=== PATIENT | male | born 1985 | race Caucasian/White ===

== ENCOUNTER → 2020-06-17 10:40 | Outpatient (CLI) | payer OTHER, SELFPAY ==
[2020-06-17 12:22] LABS: Cholesterol 176 mg/dL (140-199); HDL Cholesterol 35 mg/dL (40-60); LDL Cholesterol Calculated 95 mg/dL (<100); Triglycerides 230 mg/dL (35-150)
== END ==
PROVIDERS: PCP Internal Medicine; Referring Provider Internal Medicine; Visit Provider Internal Medicine
DX: H93.12 Tinnitus, left ear (principal); R42 Dizziness and giddiness
CPT/HCPCS: 36415; 80061

== ENCOUNTER → 2023-06-17 07:53 | Outpatient (CLI) | payer OTHER, SELFPAY ==
[2023-06-17 08:42] LABS: COVID-19 CEPHEID 4-PLEX PCR Negative (Negative); Influenza A - CEPHEID Flu A NEGATIVE (NEGATIVE); Influenza B - CEPHEID Flu B NEGATIVE (NEGATIVE); Respiratory Syncytial Virus Negative (Negative)
== END ==
PROVIDERS: PCP Internal Medicine; Visit Provider Nurse Practitioner Family
DX: R06.02 Shortness of breath (principal)
CPT/HCPCS: 0241U

== ENCOUNTER → 2023-06-17 08:01 | Outpatient (CLI) | payer OTHER, SELFPAY ==
[2023-06-17 08:37] LABS: Add Manual Diff / Slide Review NO; Basophils Absolute Auto 100 /uL (0-100); Basophils Percent Auto 0.8 % (0-2); Eosinophils Absolute Auto 400 /uL (0-450); Hematocrit 47.3 % (41-53); Hemoglobin 17.1 g/dL (13.5-17.5); Lymphocytes Absolute Auto 3100 /uL (1100-4500); Lymphocytes Percent Auto 45.9 % (25-40); Mean Corpuscular HGB Conc 36.2 % (30-36); Mean Corpuscular Hemoglobin 31.6 PG (26-34); Mean Corpuscular Volume 87.5 fL (80-100); Monocytes Absolute Auto 400 /uL (0-900); Monocytes Percent Auto 5.5 % (3-14); Neutrophils Absolute Auto 2800 /uL (1500-7000); Neutrophils Percent Auto 41.8 % (50-75); Platelet Count 278 X10^3/uL (150-400); Red Blood Cell Count 5.41 X10^6/uL (4.5-5.9); Red Cell Distribution Width 12.2 % (11.6-14.8); White Blood Cell Count 6.7 X10^3/uL (4.5-11.0)
[2023-06-17 08:53] LABS: Alanine Aminotransferase 32 IU/L (<50); Albumin 4.9 g/dL (3.5-5.0); Albumin Globulin Ratio 1.8 (1.0-2.8); Alkaline Phosphatase 59 U/L (38-126); Aspartate Aminotransferase 49 IU/L (17-59); BUN Creatinine Ratio 14.2 (6-22); Bilirubin Total 1.3 mg/dL (0.2-1.3); Blood Urea Nitrogen 28 mg/dL (9-20); Calcium 9.4 mg/dL (8.4-10.2); Carbon Dioxide 18 mmol/L (22-32); Chloride 86 mmol/L (98-107); Estimated Glomerular Filt Rate 44 mL/min (>60); Globulin 2.8 g/dL (1.7-4.1); Glucose 100 mg/dL (70-100); HEMOLYSIS 20 (0-50); Total Protein 7.7 g/dL (6.3-8.2)
[2023-06-17 09:00] LABS: Potassium 6.4 mmol/L (3.4-5.1); Sodium 117 mmol/L (137-145)
== END ==
PROVIDERS: PCP Internal Medicine; Referring Provider Nurse Practitioner Family; Visit Provider Nurse Practitioner Family
DX: R06.02 Shortness of breath (principal)
CPT/HCPCS: 36415; 80053; 85025

== ENCOUNTER 2023-06-17 09:46 | Inpatient (IN) | payer OTHER, SELFPAY ==
[2023-06-17] VITALS (44 sets, daily range): BP systolic 86–133; BP diastolic 49–84; PULSE 66–84; RESP 13–46; TEMP 36.1–36.7; O2SAT 94–100; BMI 25.9
[2023-06-17] MEDS: SODIUM CHLORIDE 0.9% 1,000 ML 1000 ML IV (10:10)
[2023-06-17 10:30] LABS: Appearance Urine UA CLEAR; Bilirubin Urine UA NEGATIVE (NEGATIVE); Color Urine UA YELLOW; Glucose Urine UA NEGATIVE (Negative); Ketones Urine UA NEGATIVE (NEGATIVE); Leukocyte Esterase Urine UA NEGATIVE (NEGATIVE); Nitrite Urine UA NEGATIVE (Negative); Occult Blood Urine UA NEGATIVE (Negative); Protein Urine UA NEGATIVE (Negative); Specific Gravity Urine UA >=1.030 (1.000-1.035); Urobilinogen Urine UA 0.2 E.U./dL (0.2); pH Urine UA 5.5 (4.5-8.0)
--- NOTE | 2023-06-17 10:31 | DI.RAD.S_ITS ---
PROCEDURE: XR CHEST 1V INDICATIONS: short of breath TECHNIQUE: One view of the chest was acquired. COMPARISON: None. FINDINGS: Surgical changes and devices: None. Lungs and pleura: Lungs are clear. No pleural effusions or pneumothorax. Mediastinum: Mediastinal contours appear normal. Heart size is normal. Bones and chest wall: No suspicious bony lesions. Overlying soft tissues appear unremarkable. IMPRESSION: No evidence acute pulmonary process. Dictated by: Joe Crowe M.D. on 06/17/2023 at 11:34 Approved by: Joe Crowe M.D. on 06/17/2023 at 11:35
[2023-06-17 10:33] LABS: UR Morphine/Opiate cutoff 300 Negative (Negative); Ur Creatinine Normal (Normal); Ur Specific Gravity Normal (Normal); Urine Amphetamines Negative (Negative); Urine Barbiturates Negative (Negative); Urine Benzodiazepines Negative (Negative); Urine Cocaine Negative (Negative); Urine MDMA Negative (Negative); Urine Methadone Negative (Negative); Urine Methamphetamines Negative (Negative); Urine Oxycodone Negative (Negative); Urine Phencyclidine Negative (Negative); Urine Tetrahydrocannabinol Positive (Negative); Urine Tricyclic Antidepressant Negative (Negative); Urine pH Normal (Normal)
[2023-06-17 10:34] LABS: Bacteria Urine None Seen; Mucus Urine 1+ (Negative); RBC Urine None Seen (0-5/HPF); Squamous Epithelial Cell Urine None Seen (0-5/HPF); WBC Urine None Seen (0-5/HPF)
--- NOTE | 2023-06-17 10:34 | ED.RECABL ---
HPI - Recheck/Abnormal Lab/Rx General Chief Complaint: Recheck/Abnormal Lab/Rx Stated Complaint: tired, abnormal lab, sent by [facility] Time Seen by Provider: 06/17/23 10:12 Source: patient Mode of arrival: Ambulatory History of Present Illness HPI narrative: Patient is a 37-year-old male with no past medical history presenting from the walk-in clinic with abdomen blood work. He was found to be hyponatremic hyperkalemic with VERONICA. He reports that over the last 1 week he is had increasing shortness of breath with very minimal exertion. He feels like he is got some sore muscles. No fever chills. He reports that he is drinking water but not excessive water. He denies any drug use no alcohol use. He reports that walking in to the ER from the parking spot he thought about sitting down and resting. He denies any chest pain no fever or cough. No abdominal pain. He still urinating. He denies taking any medications. Admits to vaping marijuana. Related Data Home Medications Medication Instructions Recorded Confirmed No Known Home Medications 06/17/23 06/17/23 Allergies Allergy/AdvReac Type Severity Reaction Status Date / Time No Known Drug Allergies Allergy Unverified 06/17/23 07:25 Review of Systems Review of Systems ROS Unobtainable: All systems reviewed & are unremarkable except as noted in HPI and below Patient History Social History household members: spouse Smoking Status: Current every day smoker alcohol intake: current Smoking Status: Current every day smoker tobacco type: vaping alcohol intake frequency: 0-2 drinks per day Substance Use Type: marijuana Exam Initial Vital Signs Initial Vital Signs: Vital Signs Pulse Rate 80 06/17/23 10:03 Respiratory Rate 19 06/17/23 10:03 Pulse Oximetry 100 06/17/23 10:03 GENERAL: Alert 37-year-old male HEENT: Head atraumatic,EOMI, pupils reactive, face symmetric, moist mucous membranes CARDIOVASCULAR: Regular rate and rhythm without murmurs, rubs or gallops. RESPIRATORY: Breath sounds equal bilaterally, no wheezes rales or rhonchi. ABDOMEN: Soft, nontender. Normoactive bowel sounds all 4 quadrants. No guarding or rebound. EXTREMITIES: Normal range of motion, no clubbing or edema. Neurovascularly intact NEUROLOGICAL: Alert and oriented x4. SKIN: Warm, dry, no laceration, no petechiae, no rashes or lesions. Course Orders Ordered: ED Orders 06/17/23 10:20 Creatinine Urine Random Stat Sodium Urine Random Stat Urinalysis and Microscopic Stat Urine Drug Screen, Rapid Stat 06/17/23 10:31 Chest [XR chest 1V] Stat Lactate (Lactic Acid) Stat 06/17/23 10:35 BNP [NT-proBNP (BNP-Adult 18+)] Stat Complete Blood Count AUTO DIFF Stat Comprehensive Metabolic Panel Stat D Dimer Stat Free T4, Direct Thyroxine Stat Lipase Stat Prothrombin Time INR Stat TSH [Thyroid Stimulating Hormone] Stat Troponin & CK Cardiac Panel Stat 06/17/23 11:30 US renal complete Stat 06/17/23 12:01 CT chest abd pel w con Stat 06/17/23 15:08 BMP [Basic Metabolic Panel] Stat 06/17/23 20:30 Basic Metabolic Panel Q4H 06/17/23 23:00 Basic Metabolic Panel Q4H 06/18/23 03:00 Basic Metabolic Panel Q4H 06/18/23 07:00 Basic Metabolic Panel Q4H Acetaminophen (Acetaminophen 325 Mg Tablet) 650 mg PO Q6H PRN PRN Reason: Fever/Mild Pain (1-3) Dextrose (Dextrose 50 % In Water 25 Gm/50 Ml Syringe) 25 gm IV PRN PRN PRN Reason: Hypoglycemia Last Admin: 06/17/23 17:40 Dose: 25 gm Documented By: GENEVIEVE Heparin Sodium (Porcine) (Heparin 5,000 Unit/Ml Vial) 5,000 unit SUBCUT BID [facility] Sodium Chloride (Hypertonic Saline 3%) 100 mls @ 30 mls/hr IV NOW ONE Stop: 06/17/23 19:29 Last Admin: 06/17/23 17:15 Dose: 30 mls/hr Documented By: GENEVIEVE Levothyroxine Sodium (Levothyroxine 25 Mcg Tablet) 25 mcg PO DAILY@0600 AC Naloxone HCl (Naloxone 0.4 Mg/Ml Vial) 0.2 mg IV Q2MIN PRN PRN Reason: Opiate Reversal Nicotine (Nicotine 7 Mg Patch) 7 mg TOP DAILY AC Ondansetron HCl (Ondansetron 4 Mg/2 Ml Inj) 4 mg IV Q8HR PRN PRN Reason: Nausea And Vomiting Discontinued Medications Dextrose (Dextrose 50 % In Water 25 Gm/50 Ml Syringe) 25 gm IV NOW ONE Stop: 06/17/23 16:06 Last Admin: 06/17/23 16:22 Dose: 25 gm Documented By: HCW Sodium Chloride (Normal Saline 0.9%) 1,000 mls @ 1,000 mls/hr IV BOLUS ONE Stop: 06/17/23 11:05 Last Infusion: 06/17/23 10:21 Dose: 0 mls/hr Documented By: Infusion: 06/17/23 10:12 Dose: 0 mls/hr Documented By: Admin: 06/17/23 10:10 Dose: 1,000 mls/hr Documented By: TOPHER Calcium Gluconate 4.65 meq/ (Sodium Chloride) 60 mls @ 180 mls/hr IV NOW ONE Stop: 06/17/23 16:24 Last Admin: 06/17/23 16:32 Dose: 180 mls/hr Documented By: YUNIEL Insulin Human Regular (Insulin Regular 100 Unit/Ml 3 Ml Vial) 10 unit IV NOW ONE Stop: 06/17/23 16:06 Last Admin: 06/17/23 16:21 Dose: 10 unit Documented By: HCW Co-signed By: RICCARDO Vital Signs Vital signs: Vital Signs - 8 hr 06/17/23 11:30 06/17/23 12:00 06/17/23 12:10 Pulse Rate 75 75 80 Respiratory Rate 22 14 22 Blood Pressure Pulse Oximetry 99 100 99 Oxygen Delivery Method Room Air 06/17/23 12:10 06/17/23 12:30 06/17/23 12:45 Pulse Rate 71 80 Respiratory Rate 13 Blood Pressure 108/73 Pulse Oximetry 100 99 Oxygen Delivery Method Room Air Room Air 06/17/23 12:45 06/17/23 13:06 06/17/23 13:06 Pulse Rate 74 Respiratory Rate 17 Blood Pressure 133/55 L 125/77 Pulse Oximetry 94 Oxygen Delivery Method Room Air 06/17/23 13:30 06/17/23 13:31 06/17/23 13:31 Pulse Rate 74 74 Respiratory Rate 25 H 26 H Blood Pressure 97/56 L Pulse Oximetry 100 100 Oxygen Delivery Method Room Air 06/17/23 14:00 06/17/23 14:03 06/17/23 14:03 Pulse Rate 74 73 Respiratory Rate 16 25 H Blood Pressure 93/61 Pulse Oximetry 98 100 Oxygen Delivery Method Room Air 06/17/23 14:04 06/17/23 14:04 06/17/23 14:30 Pulse Rate 74 Respiratory Rate 23 Blood Pressure 98/62 88/58 L Pulse Oximetry 99 Oxygen Delivery Method 06/17/23 14:30 06/17/23 14:45 06/17/23 14:45 Pulse Rate 73 76 Respiratory Rate 23 20 Blood Pressure 88/58 L Pulse Oximetry 100 99 Oxygen Delivery Method MDM - Recheck/Abnormal Lab/Rx Lab Data 06/17/23 10:35 06/17/23 15:08 Labs: Lab Results 06/17/23 06/17/23 06/17/23 Range/Units 10:20 10:20 10:20 WBC (4.5-11.0) X10^3/uL RBC (4.5-5.9) X10^6/uL Hgb (13.5-17.5) g/dL Hct (41-53) % MCV (80-100) fL MCH (26-34) PG MCHC (30-36) % RDW (11.6-14.8) % Plt Count (150-400) X10^3/uL Neut % (Auto) (50-75) % Lymph % (Auto) (25-40) % Waller % (Auto) (3-14) % Eos % (Auto) (2-4) % Baso % (Auto) (0-2) % Neut # (Auto) (3107-7823) /uL Lymph # (Auto) (5129-6157) /uL Waller # (Auto) (0-900) /uL Eos # (Auto) (0-450) /uL Baso # (Auto) (0-100) /uL PT (10.1-12.7) SECONDS INR (0.9-1.3) D-Dimer (<500) ng/ml Sodium (137-145) mmol/L Potassium (3.4-5.1) mmol/L Chloride (98-107) mmol/L Carbon Dioxide (22-32) mmol/L BUN (9-20) mg/dL Creatinine (0.66-1.25) mg/dL Estimated GFR (>60) mL/min BUN/Creatinine Ratio (6-22) Glucose (70-100) mg/dL Lactate (0.7-2.1) mmol/L Calcium (8.4-10.2) mg/dL Total Bilirubin (0.2-1.3) mg/dL AST (17-59) IU/L ALT (<50) IU/L Alkaline Phosphatase (38-126) U/L Total Creatine Kinase (55-170) U/L Troponin I (0.01-0.034) ng/mL NT-Pro-B Natriuret Pep (<125) pg/mL Total Protein (6.3-8.2) g/dL Albumin (3.5-5.0) g/dL Globulin (1.7-4.1) g/dL Albumin/Globulin Ratio (1.0-2.8) Lipase (23-300) U/L TSH (0.47-4.68) uIU/mL Free T4 (0.78-2.19) ng/dL Urine Color Yellow Urine Appearance Clear Urine pH 5.5 (4.5-8.0) Ur Specific Bryan >=1.030 H (1.000-1.035) Urine Protein Negative (Negative) Urine Glucose (UA) Negative (Negative) g/dL Urine Ketones Negative (NEGATIVE) Urine Occult Blood Negative (Negative) Urine Nitrate Negative (Negative) Urine Bilirubin Negative (NEGATIVE) Urine Urobilinogen 0.2 (0.2) E.U./dL Ur Leukocyte Esterase Negative (NEGATIVE) Urine RBC None seen (0-5/HPF) Urine WBC None seen (0-5/HPF) Ur Squamous Epith Cells None seen (0-5/HPF) Urine Bacteria None seen (None) Urine Mucus 1+ H (Negative) Ur Culture Indicated? Cult not indicated Ur Random Sodium 121 H (30-90) mmol/L Urine Creatinine 286.0 mg/dL U Opiates 300ng/mL cut Negative (Negative) Ur Oxycodone Screen Negative (Negative) Urine Methadone Screen Negative (Negative) Ur Barbiturates Screen Negative (Negative) U Tricyclic Antidepress Negative (Negative) Ur Phencyclidine Scrn Negative (Negative) Ur Amphetamines Screen Negative (Negative) U Methamphetamines Scrn Negative (Negative) Ur MDMA Scrn (Ecstasy) Negative (Negative) U Benzodiazepines Scrn Negative (Negative) Urine Cocaine Screen Negative (Negative) U Marijuana (THC) Screen Positive H (Negative) 06/17/23 06/17/23 06/17/23 Range/Units 10:31 10:35 10:35 WBC 6.1 (4.5-11.0) X10^3/uL RBC 5.17 (4.5-5.9) X10^6/uL Hgb 16.2 (13.5-17.5) g/dL Hct 45.3 (41-53) % MCV 87.7 (80-100) fL MCH 31.3 (26-34) PG MCHC 35.7 (30-36) % RDW 12.0 (11.6-14.8) % Plt Count 241 (150-400) X10^3/uL Neut % (Auto) 42.7 L (50-75) % Lymph % (Auto) 44.8 H (25-40) % Waller % (Auto) 6.0 (3-14) % Eos % (Auto) 5.8 H (2-4) % Baso % (Auto) 0.7 (0-2) % Neut # (Auto) 2600 (1327-6231) /uL Lymph # (Auto) 2700 (8845-1642) /uL Waller # (Auto) 400 (0-900) /uL Eos # (Auto) 400 (0-450) /uL Baso # (Auto) 0 (0-100) /uL PT 13.8 H (10.1-12.7) SECONDS INR 1.2 (0.9-1.3) D-Dimer (<500) ng/ml Sodium (137-145) mmol/L Potassium (3.4-5.1) mmol/L Chloride (98-107) mmol/L Carbon Dioxide (22-32) mmol/L BUN (9-20) mg/dL Creatinine (0.66-1.25) mg/dL Estimated GFR (>60) mL/min BUN/Creatinine Ratio (6-22) Glucose (70-100) mg/dL Lactate 1.0 (0.7-2.1) mmol/L Calcium (8.4-10.2) mg/dL Total Bilirubin (0.2-1.3) mg/dL AST (17-59) IU/L ALT (<50) IU/L Alkaline Phosphatase (38-126) U/L Total Creatine Kinase (55-170) U/L Troponin I (0.01-0.034) ng/mL NT-Pro-B Natriuret Pep (<125) pg/mL Total Protein (6.3-8.2) g/dL Albumin (3.5-5.0) g/dL Globulin (1.7-4.1) g/dL Albumin/Globulin Ratio (1.0-2.8) Lipase (23-300) U/L TSH (0.47-4.68) uIU/mL Free T4 (0.78-2.19) ng/dL Urine Color Urine Appearance Urine pH (4.5-8.0) Ur Specific Bryan (1.000-1.035) Urine Protein (Negative) Urine Glucose (UA) (Negative) g/dL Urine Ketones (NEGATIVE) Urine Occult Blood (Negative) Urine Nitrate (Negative) Urine Bilirubin (NEGATIVE) Urine Urobilinogen (0.2) E.U./dL Ur Leukocyte Esterase (NEGATIVE) Urine RBC (0-5/HPF) Urine WBC (0-5/HPF) Ur Squamous Epith Cells (0-5/HPF) Urine Bacteria (None) Urine Mucus (Negative) Ur Culture Indicated? Ur Random Sodium (30-90) mmol/L Urine Creatinine mg/dL U Opiates 300ng/mL cut (Negative) Ur Oxycodone Screen (Negative) Urine Methadone Screen (Negative) Ur Barbiturates Screen (Negative) U Tricyclic Antidepress (Negative) Ur Phencyclidine Scrn (Negative) Ur Amphetamines Screen (Negative) U Methamphetamines Scrn (Negative) Ur MDMA Scrn (Ecstasy) (Negative) U Benzodiazepines Scrn (Negative) Urine Cocaine Screen (Negative) U Marijuana (THC) Screen (Negative) 06/17/23 06/17/23 06/17/23 Range/Units 10:35 10:35 10:35 WBC (4.5-11.0) X10^3/uL RBC (4.5-5.9) X10^6/uL Hgb (13.5-17.5) g/dL Hct (41-53) % MCV (80-100) fL MCH (26-34) PG MCHC (30-36) % RDW (11.6-14.8) % Plt Count (150-400) X10^3/uL Neut % (Auto) (50-75) % Lymph % (Auto) (25-40) % Waller % (Auto) (3-14) % Eos % (Auto) (2-4) % Baso % (Auto) (0-2) % Neut # (Auto) (3543-4093) /uL Lymph # (Auto) (3103-1348) /uL Waller # (Auto) (0-900) /uL Eos # (Auto) (0-450) /uL Baso # (Auto) (0-100) /uL PT (10.1-12.7) SECONDS INR (0.9-1.3) D-Dimer (<500) ng/ml Sodium 118 L* (137-145) mmol/L Potassium 5.5 H (3.4-5.1) mmol/L Chloride 87 L (98-107) mmol/L Carbon Dioxide 20 L (22-32) mmol/L BUN 28 H (9-20) mg/dL Creatinine 1.92 H (0.66-1.25) mg/dL Estimated GFR 46 L (>60) mL/min BUN/Creatinine Ratio 14.6 (6-22) Glucose 82 (70-100) mg/dL Lactate (0.7-2.1) mmol/L Calcium 8.9 (8.4-10.2) mg/dL Total Bilirubin 1.1 (0.2-1.3) mg/dL AST 46 (17-59) IU/L ALT 29 (<50) IU/L Alkaline Phosphatase 53 (38-126) U/L Total Creatine Kinase 496 H (55-170) U/L Troponin I < 0.012 (0.01-0.034) ng/mL NT-Pro-B Natriuret Pep < 20 (<125) pg/mL Total Protein 7.3 (6.3-8.2) g/dL Albumin 4.5 (3.5-5.0) g/dL Globulin 2.8 (1.7-4.1) g/dL Albumin/Globulin Ratio 1.6 (1.0-2.8) Lipase 200 (23-300) U/L TSH 40.5 H (0.47-4.68) uIU/mL Free T4 (0.78-2.19) ng/dL Urine Color Urine Appearance Urine pH (4.5-8.0) Ur Specific Bryan (1.000-1.035) Urine Protein (Negative) Urine Glucose (UA) (Negative) g/dL Urine Ketones (NEGATIVE) Urine Occult Blood (Negative) Urine Nitrate (Negative) Urine Bilirubin (NEGATIVE) Urine Urobilinogen (0.2) E.U./dL Ur Leukocyte Esterase (NEGATIVE) Urine RBC (0-5/HPF) Urine WBC (0-5/HPF) Ur Squamous Epith Cells (0-5/HPF) Urine Bacteria (None) Urine Mucus (Negative) Ur Culture Indicated? Ur Random Sodium (30-90) mmol/L Urine Creatinine mg/dL U Opiates 300ng/mL cut (Negative) Ur Oxycodone Screen (Negative) Urine Methadone Screen (Negative) Ur Barbiturates Screen (Negative) U Tricyclic Antidepress (Negative) Ur Phencyclidine Scrn (Negative) Ur Amphetamines Screen (Negative) U Methamphetamines Scrn (Negative) Ur MDMA Scrn (Ecstasy) (Negative) U Benzodiazepines Scrn (Negative) Urine Cocaine Screen (Negative) U Marijuana (THC) Screen (Negative) 06/17/23 06/17/23 Range/Units 10:35 10:35 WBC (4.5-11.0) X10^3/uL RBC (4.5-5.9) X10^6/uL Hgb (13.5-17.5) g/dL Hct (41-53) % MCV (80-100) fL MCH (26-34) PG MCHC (30-36) % RDW (11.6-14.8) % Plt Count (150-400) X10^3/uL Neut % (Auto) (50-75) % Lymph % (Auto) (25-40) % Waller % (Auto) (3-14) % Eos % (Auto) (2-4) % Baso % (Auto) (0-2) % Neut # (Auto) (1986-6351) /uL Lymph # (Auto) (8059-2000) /uL Waller # (Auto) (0-900) /uL Eos # (Auto) (0-450) /uL Baso # (Auto) (0-100) /uL PT (10.1-12.7) SECONDS INR (0.9-1.3) D-Dimer 475 (<500) ng/ml Sodium (137-145) mmol/L Potassium (3.4-5.1) mmol/L Chloride (98-107) mmol/L Carbon Dioxide (22-32) mmol/L BUN (9-20) mg/dL Creatinine (0.66-1.25) mg/dL Estimated GFR (>60) mL/min BUN/Creatinine Ratio (6-22) Glucose (70-100) mg/dL Lactate (0.7-2.1) mmol/L Calcium (8.4-10.2) mg/dL Total Bilirubin (0.2-1.3) mg/dL AST (17-59) IU/L ALT (<50) IU/L Alkaline Phosphatase (38-126) U/L Total Creatine Kinase (55-170) U/L Troponin I (0.01-0.034) ng/mL NT-Pro-B Natriuret Pep (<125) pg/mL Total Protein (6.3-8.2) g/dL Albumin (3.5-5.0) g/dL Globulin (1.7-4.1) g/dL Albumin/Globulin Ratio (1.0-2.8) Lipase (23-300) U/L TSH (0.47-4.68) uIU/mL Free T4 0.51 L (0.78-2.19) ng/dL Urine Color Urine Appearance Urine pH (4.5-8.0) Ur Specific Bryan (1.000-1.035) Urine Protein (Negative) Urine Glucose (UA) (Negative) g/dL Urine Ketones (NEGATIVE) Urine Occult Blood (Negative) Urine Nitrate (Negative) Urine Bilirubin (NEGATIVE) Urine Urobilinogen (0.2) E.U./dL Ur Leukocyte Esterase (NEGATIVE) Urine RBC (0-5/HPF) Urine WBC (0-5/HPF) Ur Squamous Epith Cells (0-5/HPF) Urine Bacteria (None) Urine Mucus (Negative) Ur Culture Indicated? Ur Random Sodium (30-90) mmol/L Urine Creatinine mg/dL U Opiates 300ng/mL cut (Negative) Ur Oxycodone Screen (Negative) Urine Methadone Screen (Negative) Ur Barbiturates Screen (Negative) U Tricyclic Antidepress (Negative) Ur Phencyclidine Scrn (Negative) Ur Amphetamines Screen (Negative) U Methamphetamines Scrn (Negative) Ur MDMA Scrn (Ecstasy) (Negative) U Benzodiazepines Scrn (Negative) Urine Cocaine Screen (Negative) U Marijuana (THC) Screen (Negative) Point of Care Testing Glucose POC 124 Imaging Data Chest x-ray: Radiologist's Impression: PROCEDURE:? XR CHEST 1V ? INDICATIONS:? short of breath ? TECHNIQUE:? One view of the chest was acquired.? ? COMPARISON:? None. ? FINDINGS:? ? Surgical changes and devices:? None.? ? Lungs and pleura:? Lungs are clear.? No pleural effusions or pneumothorax.? ? Mediastinum:? Mediastinal contours appear normal.? Heart size is normal.? ? Bones and chest wall:? No suspicious bony lesions.? Overlying soft tissues appear unremarkable.? ? IMPRESSION:? No evidence acute pulmonary process. ? ? ? Dictated by: Joe Crowe M.D. on 06/17/2023 at 11:34 ? US renal: Radiologist's Impression: PROCEDURE:? US RENAL COMPLETE ? INDICATIONS:? RENAL FAILURE ? TECHNIQUE:? Real-time scanning was performed of the kidneys and bladder, with image documentation.? ? COMPARISON:? [facility], CT, CT CHEST ABD PEL W CON, 06/17/2023, 12:55. ? FINDINGS:? ? Kidneys:? Kidneys are atrophic.? Right kidney measures 8.0 cm long; left kidney measures 9.1 cm long.? Right renal cortical thickness is 1.2 cm; left renal cortical thickness is 1.2 cm.? Renal cortical echotexture is normal.? No hydronephrosis or nephrolithiasis.? No suspicious solid mass lesions.? ? Bladder:? Patient voided prior to the exam.? Post-void residual is 4 mL.? Pre-void images demonstrate no intraluminal masses or stones.? ? Miscellaneous:? No free pelvic fluid.? The liver is heterogeneous with regional areas of increased and decreased echogenicity, likely representing hepatic steatosis with regions of fatty sparing. ? IMPRESSION:? ? 1. The kidneys are atrophic in appearance.? No hydronephrosis or stones. 2. Incidental note heterogeneous appearance of the liver with regions of decreased and increased echogenicity, likely representing fatty infiltration with regions of fatty sparing. ? ? Dictated by: Cholo Montague M.D. on 06/17/2023 at 13:34? CT scan - chest: Radiologist's Impression: PROCEDURE:? CT CHEST ABD PEL W CON ? INDICATIONS:? short of brerath low sodium ? TECHNIQUE:? After the administration of oral and intravenous contrast, axial sections acquired from the supraclavicular neck to the pubic symphysis.? Coronal and sagittal reformats were performed.? For radiation dose reduction, the following was used:? automated exposure control, adjustment of mA and/or kV according to patient size.? ? COMPARISON: ? None. ? FINDINGS:? Image quality:? Good ? Lungs and pleura:? No suspicious pulmonary nodule or mass.? No dense airspace disease.? No pleural effusions.? Tiny nodule adjacent to the left fissure is probably a lymph node. ? Mediastinum, heart, and esophagus:? Nonspecific esophageal mucosal hyperemia at the distal aspect, as well as [id number] esophageal wall thickening.? Prominent periesophageal lymph nodes are present.? Small calcifications in the anterior mediastinum with small amount soft tissue, possibly remnant thymus. ? Chest wall and thyroid:? No actionable thyroid nodule identified. Small nodules are seen posterior to the thyroid lobes bilaterally (2/13).? These may represent lymph nodes. ? Solid organs:? Liver appears unremarkable.? Gallbladder is under distended.? No pathologic dilation of the biliary tree or pancreatic duct.? No splenomegaly.? No adrenal nodules.? No hydronephrosis. ? Vessels and lymph nodes:? Main portal vein is patent.? There is no abdominal aortic aneurysm or pathologic lymph nodes in the abdomen/pelvis by size criteria. ? Bowel and peritoneum:? No evidence of small bowel obstruction.? Appendix appears nondilated.? No pathologic ascites or abscess. ? Body wall:? Slightly higher than expected position of the left testis, in the inguinal canal of uncertain significance. ? Pelvis:? Bladder is unremarkable.? Prostate not well evaluated on this study. ? Bones:? No acute osseous finding.? Mild scattered degenerative changes.? An indeterminate small sclerotic region is seen in the L2 vertebral body.? ? IMPRESSION:? No acute abnormality in the chest, abdomen, or pelvis.? No evidence of active airspace disease in the lungs.? No pleural effusions. ? No definite disseminated malignancy.? Small indeterminate sclerotic region is seen in the L2 vertebral body ().? In addition, small soft tissue nodules are seen posterior to the thyroid lobes bilaterally, possibly representing small lymph nodes.? Depending on clinical context, consider follow-up imaging and/or correlation with PTH values. ? [id number] inflammatory changes of the esophagus, particularly at the distal aspect, with possible reactive periesophageal lymph nodes.? Correlate with symptoms and possible endoscopy. ? Dictated by: Jorge Mcbride M.D. on 06/17/2023 at 13:34 ?? ECG Data Interpretation: Sinus rhythm rate 78 IL interval 140 QRS [address] changes MDM Narrative Medical decision making narrative: Patient 37-year-old male presents today with increasing shortness of breath with exertion generalized malaise abnormal blood work, he is found to be hyponatremic with a sodium of 118 previous hyperkalemia of 6.4 has resolved to 5.5. He is found to be significantly hypothyroid with a TSH of 40 but no evidence of myxedema coma. He is awake alert and oriented. No cause of his shortness of breath is found. BNP is negative chest x-ray is clear D-dimer is less than 500. Chest CT chest abdomen pelvis does not show any significant abnormalities. He is not requiring any oxygen, and overall appears well Unclear cause of the hyponatremia he does not appear fluid overloaded in fact he does appear euvolemic, no excessive water intake no drug use. No evidence of head injury or SIADH, I suspect it is probably from his hypothyroidism. Dr. Posada, updated patient's symptoms test results accepts patient. It is noted that patient's blood pressure is decreasing and agrees with 1 L of normal saline. His blood pressure has decreased some while in the ED he reports that he typically has low blood pressure with systolic at 95 however he initially had a blood pressure of 125 and it has gone down as low as 88. Discharge Plan Departure Patient Disposition: Admitted As Inpatient Clinical Impression: Acute hyponatremia, Hypothyroid, Acute hyperkalemia Admit Date/Time: 06/17/23 14:52 Admit Provider: Antwon Posada
[2023-06-17 10:35] LABS: Culture Indicated Urine Cult Not Indicated
[2023-06-17 10:41] LABS: Add Manual Diff / Slide Review NO; Basophils Absolute Auto 0 /uL (0-100); Basophils Percent Auto 0.7 % (0-2); Eosinophils Absolute Auto 400 /uL (0-450); Eosinophils Percent Auto 5.8 % (2-4); Hematocrit 45.3 % (41-53); Hemoglobin 16.2 g/dL (13.5-17.5); Lymphocytes Absolute Auto 2700 /uL (1100-4500); Lymphocytes Percent Auto 44.8 % (25-40); Mean Corpuscular HGB Conc 35.7 % (30-36); Mean Corpuscular Hemoglobin 31.3 PG (26-34); Mean Corpuscular Volume 87.7 fL (80-100); Monocytes Absolute Auto 400 /uL (0-900); Neutrophils Absolute Auto 2600 /uL (1500-7000); Neutrophils Percent Auto 42.7 % (50-75); Platelet Count 241 X10^3/uL (150-400); Red Blood Cell Count 5.17 X10^6/uL (4.5-5.9); White Blood Cell Count 6.1 X10^3/uL (4.5-11.0)
[2023-06-17 10:47] LABS: Sodium Urine Random 121 mmol/L (30-90)
[2023-06-17 10:50] LABS: INR 1.2 (0.9-1.3); Prothrombin Time 13.8 SECONDS (10.1-12.7)
[2023-06-17 10:54] LABS: Creatine Kinase 496 U/L (55-170)
[2023-06-17 10:55] LABS: Alanine Aminotransferase 29 IU/L (<50); Albumin 4.5 g/dL (3.5-5.0); Albumin Globulin Ratio 1.6 (1.0-2.8); Alkaline Phosphatase 53 U/L (38-126); Aspartate Aminotransferase 46 IU/L (17-59); BUN Creatinine Ratio 14.6 (6-22); Bilirubin Total 1.1 mg/dL (0.2-1.3); Blood Urea Nitrogen 28 mg/dL (9-20); Calcium 8.9 mg/dL (8.4-10.2); Carbon Dioxide 20 mmol/L (22-32); Chloride 87 mmol/L (98-107); Estimated Glomerular Filt Rate 46 mL/min (>60); Globulin 2.8 g/dL (1.7-4.1); Glucose 82 mg/dL (70-100); HEMOLYSIS < 15 (0-50); Lipase 200 U/L (23-300); Potassium 5.5 mmol/L (3.4-5.1); Total Protein 7.3 g/dL (6.3-8.2)
[2023-06-17 10:56] LABS: Sodium 118 mmol/L (137-145)
[2023-06-17 11:06] LABS: NT-proBNP (BNP-Adult 18+) < 20 pg/mL (<125); Troponin I < 0.012 ng/mL (0.01-0.034)
[2023-06-17 11:23] LABS: D Dimer 475 ng/ml (<500)
[2023-06-17 11:24] LABS: Thyroid Stimulating Hormone 40.5 uIU/mL (0.47-4.68)
--- NOTE | 2023-06-17 11:30 | DI.US.S_ITS ---
PROCEDURE: US RENAL COMPLETE INDICATIONS: RENAL FAILURE TECHNIQUE: Real-time scanning was performed of the kidneys and bladder, with image documentation. COMPARISON: [facility], CT, CT CHEST ABD PEL W CON, 06/17/2023, 12:55. FINDINGS: Kidneys: Kidneys are atrophic. Right kidney measures 8.0 cm long; left kidney measures 9.1 cm long. Right renal cortical thickness is 1.2 cm; left renal cortical thickness is 1.2 cm. Renal cortical echotexture is normal. No hydronephrosis or nephrolithiasis. No suspicious solid mass lesions. Bladder: Patient voided prior to the exam. Post-void residual is 4 mL. Pre-void images demonstrate no intraluminal masses or stones. Miscellaneous: No free pelvic fluid. The liver is heterogeneous with regional areas of increased and decreased echogenicity, likely representing hepatic steatosis with regions of fatty sparing. IMPRESSION: 1. The kidneys are atrophic in appearance. No hydronephrosis or stones. 2. Incidental note heterogeneous appearance of the liver with regions of decreased and increased echogenicity, likely representing fatty infiltration with regions of fatty sparing. Dictated by: Cholo Montague M.D. on 06/17/2023 at 13:34 Approved by: Cholo Montague M.D. on 06/17/2023 at 13:37
--- NOTE | 2023-06-17 12:01 | DI.CT.S_ITS ---
PROCEDURE: CT CHEST ABD PEL W CON INDICATIONS: short of brera low sodium TECHNIQUE: After the administration of oral and intravenous contrast, axial sections acquired from the supraclavicular neck to the pubic symphysis. Coronal and sagittal reformats were performed. For radiation dose reduction, the following was used: automated exposure control, adjustment of mA and/or kV according to patient size. COMPARISON: None. FINDINGS: Image quality: Good Lungs and pleura: No suspicious pulmonary nodule or mass. No dense airspace disease. No pleural effusions. Tiny nodule adjacent to the left fissure is probably a lymph node. Mediastinum, heart, and esophagus: Nonspecific esophageal mucosal hyperemia at the distal aspect, as well as [id number] esophageal wall thickening. Prominent periesophageal lymph nodes are present. Small calcifications in the anterior mediastinum with small amount soft tissue, possibly remnant thymus. Chest wall and thyroid: No actionable thyroid nodule identified. Small nodules are seen posterior to the thyroid lobes bilaterally (2/13). These may represent lymph nodes. Solid organs: Liver appears unremarkable. Gallbladder is under distended. No pathologic dilation of the biliary tree or pancreatic duct. No splenomegaly. No adrenal nodules. No hydronephrosis. Vessels and lymph nodes: Main portal vein is patent. There is no abdominal aortic aneurysm or pathologic lymph nodes in the abdomen/pelvis by size criteria. Bowel and peritoneum: No evidence of small bowel obstruction. Appendix appears nondilated. No pathologic ascites or abscess. Body wall: Slightly higher than expected position of the left testis, in the inguinal canal of uncertain significance. Pelvis: Bladder is unremarkable. Prostate not well evaluated on this study. Bones: No acute osseous finding. Mild scattered degenerative changes. An indeterminate small sclerotic region is seen in the L2 vertebral body. 446 IMPRESSION: No acute abnormality in the chest, abdomen, or pelvis. No evidence of active airspace disease in the lungs. No pleural effusions. No definite disseminated malignancy. Small indeterminate sclerotic region is seen in the L2 vertebral body (4/46). In addition, small soft tissue nodules are seen posterior to the thyroid lobes bilaterally, possibly representing small lymph nodes. Depending on clinical context, consider follow-up imaging and/or correlation with PTH values. Spta-eg-zynchuar inflammatory changes of the esophagus, particularly at the distal aspect, with possible reactive periesophageal lymph nodes. Correlate with symptoms and possible endoscopy. Dictated by: Jorge Mcbride M.D. on 06/17/2023 at 13:34 Approved by: Jorge Mcbride M.D. on 06/17/2023 at 13:44
[2023-06-17 12:39] LABS: Free T4, Direct Thyroxine 0.51 ng/dL (0.78-2.19)
--- NOTE | 2023-06-17 14:32 | PC.NURSE ---
Patient had a low BP reading from being on his side with BP cuff on elevated limb. Pt BP on right arm 93\61 HR 74. Left arm 98\62. Pt states he does not feel worse than when he presented to the ER and no change in his mentation. Provider was made aware of his BP's and no mental status change. No new orders at this time.
[2023-06-17 15:45] LABS: BUN Creatinine Ratio 14.7 (6-22); Blood Urea Nitrogen 26 mg/dL (9-20); Calcium 8.2 mg/dL (8.4-10.2); Carbon Dioxide 19 mmol/L (22-32); Chloride 88 mmol/L (98-107); Estimated Glomerular Filt Rate 50 mL/min (>60); Glucose 81 mg/dL (70-100); HEMOLYSIS 17 (0-50)
[2023-06-17 15:58] LABS: Sodium 116 mmol/L (137-145)
[2023-06-17 15:59] LABS: Potassium 6.4 mmol/L (3.4-5.1)
[2023-06-17] MEDS: INSULIN REGULAR 100 UNIT/ML 3 ML VIAL 10 UNIT IV (16:21)
[2023-06-17] MEDS: DEXTROSE 50 % IN WATER 25 GM/50 ML SYRINGE IV ×2 (16:22→17:40)
[2023-06-17] MEDS: CALCIUM GLUCONATE 4.65 MEQ in SODIUM CHLORIDE 0.9% 50 ML 180 MEQ IV (16:32)
[2023-06-17 16:37] LABS: Cortisol Random 4.33 ug/dL
--- NOTE | 2023-06-17 17:14 | DI.RAD.S_ITS ---
PROCEDURE: XR CHEST FOR PICC 1V INDICATIONS: picc placement TECHNIQUE: One view of the chest was acquired. COMPARISON: [facility], , XR CHEST 1V, 06/17/2023, 10:42. FINDINGS: Surgical changes and devices: Right PICC is seen with catheter tip projecting over the upper superior vena cava versus confluence of the innominate veins. Lungs and pleura: Lungs are clear. No pleural effusions or pneumothorax. Mediastinum: Mediastinal contours appear normal. Heart size is normal. Bones and chest wall: No suspicious bony lesions. Overlying soft tissues appear unremarkable. IMPRESSION: Right PICC is seen with catheter tip projecting over the upper superior vena cava versus confluence of the innominate veins. Approved by: Donte Pichardo M.D. on 06/17/2023 at 18:26
[2023-06-17] MEDS: SODIUM CHLORIDE 3 % 100 ML 30 ML IV (17:15)
--- NOTE | 2023-06-17 18:33 | P.HP_ITS ---
History of Present Illness History of Present Illness Date Patient Seen: 06/17/23 Time Patient Seen: 14:00 Chief complaint: tired, abnormal lab, sent by [facility] Narrative: Mr. Burgos is a 37M smoker who presents to the hospital with shortness of breath and fatigue. He has had at least a year of intermittent fatigue. He has not seen anyone for this concern. He has noted over the last week exertional dyspnea. He has dry skin. He has a decreased appetite. He does not feel lightheaded or dehyrated. He has some hyperpigmented skin, but he says this happened over 10 year ago and has remained stable. He presented to same day clinic and labs noted to be hyponatremic, hyperkalemic, and VERONICA. He was sent to the ED. In the ED workup was done, vitals notable for afebrile, heart rate in the 80s, blood pressure 80s-110s/50s, sats 100% on room air. Labs reviewed by me and lyle breen for WBC 6.1, hgb 16.2, plts 241. INR 1.2. Na 118, k 5.5, creatinine 1.92. CK 496. Trop normal. BNP negative. LFTs normal. Lactate 1.0. TSH elevated, free t4 low. UA negative for infection. Urine sodium 121, urine creatinine 286. Urine drug screen positive for marinjuana. COVID, flu, rsv negative. Chest xray reviewed by me and negative for any acute process. CT chest, abdomen, pelvis reviewed by me and notable for mild L2 sclerosis, and inflammatory changes of the esophagus, and tissue nodules posterior to the thyroid. He was initially admitted to the floor. Repeat labs showed worsening sodium to 116, and rising k to 6.4, he was transferred to the ICU for hypertonic saline and PICC was placed. He was ordered for calcium, insulin, dextrose. [facility] Social History household members: spouse Smoking Status: Current every day smoker alcohol intake: current Meds Home Medications and Allergies Home Medications Medication Instructions Recorded Confirmed Type No Known Home Medications 06/17/23 06/17/23 History Allergies Allergy/AdvReac Type Severity Reaction Status Date / Time No Known Drug Allergies Allergy Unverified 06/17/23 07:25 Review of Systems Review of Systems Narrative: 14 systems reviewed and negative aside from what is noted in HPI Exam Vital Signs (past 8 hours): - 06/17/23 11:00 06/17/23 11:30 06/17/23 12:00 Temperature Pulse Rate 75 75 75 Respiratory Rate 33 H 22 14 Blood Pressure Pulse Oximetry 100 99 100 Oxygen Delivery Method Oxygen Flow Rate 06/17/23 12:10 06/17/23 12:10 06/17/23 12:30 Temperature Pulse Rate 80 71 Respiratory Rate 22 13 Blood Pressure 108/73 Pulse Oximetry 99 100 Oxygen Delivery Method Room Air Room Air Oxygen Flow Rate 06/17/23 12:45 06/17/23 12:45 06/17/23 13:06 Temperature Pulse Rate 80 74 Respiratory Rate 17 Blood Pressure 133/55 L Pulse Oximetry 99 94 Oxygen Delivery Method Room Air Room Air Oxygen Flow Rate 06/17/23 13:06 06/17/23 13:30 06/17/23 13:31 Temperature Pulse Rate 74 74 Respiratory Rate 25 H 26 H Blood Pressure 125/77 Pulse Oximetry 100 100 Oxygen Delivery Method Room Air Oxygen Flow Rate 06/17/23 13:31 06/17/23 14:00 06/17/23 14:03 Temperature Pulse Rate 74 73 Respiratory Rate 16 25 H Blood Pressure 97/56 L Pulse Oximetry 98 100 Oxygen Delivery Method Room Air Oxygen Flow Rate 06/17/23 14:03 06/17/23 14:04 06/17/23 14:04 Temperature Pulse Rate 74 Respiratory Rate 23 Blood Pressure 93/61 98/62 Pulse Oximetry 99 Oxygen Delivery Method Oxygen Flow Rate 06/17/23 14:30 06/17/23 14:30 06/17/23 14:45 Temperature Pulse Rate 73 76 Respiratory Rate 23 20 Blood Pressure 88/58 L Pulse Oximetry 100 99 Oxygen Delivery Method Oxygen Flow Rate 06/17/23 14:45 06/17/23 15:00 06/17/23 15:18 Temperature Pulse Rate 74 Respiratory Rate Blood Pressure 88/58 L 112/58 L Pulse Oximetry 100 Oxygen Delivery Method Room Air Oxygen Flow Rate 06/17/23 15:18 06/17/23 15:18 06/17/23 15:34 Temperature 97.9 F Pulse Rate 74 76 Respiratory Rate 20 20 Blood Pressure 112/52 L 116/84 Pulse Oximetry 99 Oxygen Delivery Method Oxygen Flow Rate 0 06/17/23 15:00 06/17/23 16:38 06/17/23 17:00 Temperature Pulse Rate 78 Respiratory Rate 30 H Blood Pressure 100/53 L Pulse Oximetry 100 Oxygen Delivery Method Room Air Oxygen Flow Rate 06/17/23 17:00 Temperature Pulse Rate 77 Respiratory Rate 23 Blood Pressure Pulse Oximetry 98 Oxygen Delivery Method Oxygen Flow Rate Oxygen Delivery Method Room Air Oxygen Flow Rate 0 Narrative Exam Narrative: GEN: no acute distress HEENT: slightly dry mucous membranes CV: regular rate and rhythm, no murmurs PULM: clear bilaterally ABD: soft, nontender, nondistended, no organomegaly, normal bowel sounds EXT: warm and well perfused no edema SKIN: hyperpigemented, dry NEURO: awake, alert, oriented, no focal deficits Objective Labs 06/17/23 10:35 06/17/23 15:08 Labs: Laboratory Results - last 24 hr 06/17/23 06/17/23 06/17/23 10:20 10:20 10:20 WBC RBC Hgb Hct MCV MCH MCHC RDW Plt Count Neut % (Auto) Lymph % (Auto) Leslie % (Auto) Eos % (Auto) Baso % (Auto) Neut # (Auto) Lymph # (Auto) Leslie # (Auto) Eos # (Auto) Baso # (Auto) PT INR D-Dimer Sodium Potassium Chloride Carbon Dioxide BUN Creatinine Estimated GFR BUN/Creatinine Ratio Glucose Lactate Calcium Total Bilirubin AST ALT Alkaline Phosphatase Total Creatine Kinase Troponin I NT-Pro-B Natriuret Pep Total Protein Albumin Globulin Albumin/Globulin Ratio Lipase TSH Free T4 Random Cortisol Urine Color Yellow Urine Appearance Clear Urine pH 5.5 Ur Specific [place] >=1.030 H Urine Protein Negative Urine Glucose (UA) Negative Urine Ketones Negative Urine Occult Blood Negative Urine Nitrate Negative Urine Bilirubin Negative Urine Urobilinogen 0.2 Ur Leukocyte Esterase Negative Urine RBC None seen Urine WBC None seen Ur Squamous Epith Cells None seen Urine Bacteria None seen Urine Mucus 1+ H Ur Culture Indicated? Cult not indicated Ur Random Sodium 121 H Urine Creatinine 286.0 U Opiates 300ng/mL cut Negative Ur Oxycodone Screen Negative Urine Methadone Screen Negative Ur Barbiturates Screen Negative U Tricyclic Antidepress Negative Ur Phencyclidine Scrn Negative Ur Amphetamines Screen Negative U Methamphetamines Scrn Negative Ur MDMA Scrn (Ecstasy) Negative U Benzodiazepines Scrn Negative Urine Cocaine Screen Negative U Marijuana (THC) Screen Positive H 06/17/23 06/17/23 06/17/23 10:31 10:35 10:35 WBC 6.1 RBC 5.17 Hgb 16.2 Hct 45.3 MCV 87.7 MCH 31.3 MCHC 35.7 RDW 12.0 Plt Count 241 Neut % (Auto) 42.7 L Lymph % (Auto) 44.8 H Leslie % (Auto) 6.0 Eos % (Auto) 5.8 H Baso % (Auto) 0.7 Neut # (Auto) 2600 Lymph # (Auto) 2700 Leslie # (Auto) 400 Eos # (Auto) 400 Baso # (Auto) 0 PT 13.8 H INR 1.2 D-Dimer Sodium Potassium Chloride Carbon Dioxide BUN Creatinine Estimated GFR BUN/Creatinine Ratio Glucose Lactate 1.0 Calcium Total Bilirubin AST ALT Alkaline Phosphatase Total Creatine Kinase Troponin I NT-Pro-B Natriuret Pep Total Protein Albumin Globulin Albumin/Globulin Ratio Lipase TSH Free T4 Random Cortisol Urine Color Urine Appearance Urine pH Ur Specific [place] Urine Protein Urine Glucose (UA) Urine Ketones Urine Occult Blood Urine Nitrate Urine Bilirubin Urine Urobilinogen Ur Leukocyte Esterase Urine RBC Urine WBC Ur Squamous Epith Cells Urine Bacteria Urine Mucus Ur Culture Indicated? Ur Random Sodium Urine Creatinine U Opiates 300ng/mL cut Ur Oxycodone Screen Urine Methadone Screen Ur Barbiturates Screen U Tricyclic Antidepress Ur Phencyclidine Scrn Ur Amphetamines Screen U Methamphetamines Scrn Ur MDMA Scrn (Ecstasy) U Benzodiazepines Scrn Urine Cocaine Screen U Marijuana (THC) Screen 06/17/23 06/17/23 06/17/23 10:35 10:35 10:35 WBC RBC Hgb Hct MCV MCH MCHC RDW Plt Count Neut % (Auto) Lymph % (Auto) Leslie % (Auto) Eos % (Auto) Baso % (Auto) Neut # (Auto) Lymph # (Auto) Leslie # (Auto) Eos # (Auto) Baso # (Auto) PT INR D-Dimer Sodium 118 L* Potassium 5.5 H Chloride 87 L Carbon Dioxide 20 L BUN 28 H Creatinine 1.92 H Estimated GFR 46 L BUN/Creatinine Ratio 14.6 Glucose 82 Lactate Calcium 8.9 Total Bilirubin 1.1 AST 46 ALT 29 Alkaline Phosphatase 53 Total Creatine Kinase 496 H Troponin I < 0.012 NT-Pro-B Natriuret Pep < 20 Total Protein 7.3 Albumin 4.5 Globulin 2.8 Albumin/Globulin Ratio 1.6 Lipase 200 TSH 40.5 H Free T4 Random Cortisol Urine Color Urine Appearance Urine pH Ur Specific [place] Urine Protein Urine Glucose (UA) Urine Ketones Urine Occult Blood Urine Nitrate Urine Bilirubin Urine Urobilinogen Ur Leukocyte Esterase Urine RBC Urine WBC Ur Squamous Epith Cells Urine Bacteria Urine Mucus Ur Culture Indicated? Ur Random Sodium Urine Creatinine U Opiates 300ng/mL cut Ur Oxycodone Screen Urine Methadone Screen Ur Barbiturates Screen U Tricyclic Antidepress Ur Phencyclidine Scrn Ur Amphetamines Screen U Methamphetamines Scrn Ur MDMA Scrn (Ecstasy) U Benzodiazepines Scrn Urine Cocaine Screen U Marijuana (THC) Screen 06/17/23 06/17/23 06/17/23 10:35 10:35 15:08 WBC RBC Hgb Hct MCV MCH MCHC RDW Plt Count Neut % (Auto) Lymph % (Auto) Leslie % (Auto) Eos % (Auto) Baso % (Auto) Neut # (Auto) Lymph # (Auto) Leslie # (Auto) Eos # (Auto) Baso # (Auto) PT INR D-Dimer 475 Sodium 116 L* Potassium 6.4 H* Chloride 88 L Carbon Dioxide 19 L BUN 26 H Creatinine 1.77 H Estimated GFR 50 L BUN/Creatinine Ratio 14.7 Glucose 81 Lactate Calcium 8.2 L Total Bilirubin AST ALT Alkaline Phosphatase Total Creatine Kinase Troponin I NT-Pro-B Natriuret Pep Total Protein Albumin Globulin Albumin/Globulin Ratio Lipase TSH Free T4 0.51 L Random Cortisol Urine Color Urine Appearance Urine pH Ur Specific [place] Urine Protein Urine Glucose (UA) Urine Ketones Urine Occult Blood Urine Nitrate Urine Bilirubin Urine Urobilinogen Ur Leukocyte Esterase Urine RBC Urine WBC Ur Squamous Epith Cells Urine Bacteria Urine Mucus Ur Culture Indicated? Ur Random Sodium Urine Creatinine U Opiates 300ng/mL cut Ur Oxycodone Screen Urine Methadone Screen Ur Barbiturates Screen U Tricyclic Antidepress Ur Phencyclidine Scrn Ur Amphetamines Screen U Methamphetamines Scrn Ur MDMA Scrn (Ecstasy) U Benzodiazepines Scrn Urine Cocaine Screen U Marijuana (THC) Screen 06/17/23 15:08 WBC RBC Hgb Hct MCV MCH MCHC RDW Plt Count Neut % (Auto) Lymph % (Auto) Leslie % (Auto) Eos % (Auto) Baso % (Auto) Neut # (Auto) Lymph # (Auto) Leslie # (Auto) Eos # (Auto) Baso # (Auto) PT INR D-Dimer Sodium Potassium Chloride Carbon Dioxide BUN Creatinine Estimated GFR BUN/Creatinine Ratio Glucose Lactate Calcium Total Bilirubin AST ALT Alkaline Phosphatase Total Creatine Kinase Troponin I NT-Pro-B Natriuret Pep Total Protein Albumin Globulin Albumin/Globulin Ratio Lipase TSH Free T4 Random Cortisol 4.33 Urine Color Urine Appearance Urine pH Ur Specific [place] Urine Protein Urine Glucose (UA) Urine Ketones Urine Occult Blood Urine Nitrate Urine Bilirubin Urine Urobilinogen Ur Leukocyte Esterase Urine RBC Urine WBC Ur Squamous Epith Cells Urine Bacteria Urine Mucus Ur Culture Indicated? Ur Random Sodium Urine Creatinine U Opiates 300ng/mL cut Ur Oxycodone Screen Urine Methadone Screen Ur Barbiturates Screen U Tricyclic Antidepress Ur Phencyclidine Scrn Ur Amphetamines Screen U Methamphetamines Scrn Ur MDMA Scrn (Ecstasy) U Benzodiazepines Scrn Urine Cocaine Screen U Marijuana (THC) Screen Assessment & Plan Assessment & Plan narrative: 1. Severe hyponatremia -he appear mildly hypovolemic, but not significantly so -etiology is possible hypovolemic, but there is not a clear etiology to cause such a severe hyponatremia -rather I suspect he may have hyponatremia secondary to hypothyroidism or secondary to TSH -regardless given severe hyponatremia will order 3% hypertonic saline, plan for 5 hour infusion -trend sodium q4h -once sodium over 120, would stop hypertonic saline -ordered synthroid for concern for hypothyroidism given high tsh, low t4 2. VERONICA with hyperkalemia -etiology not clear, possible hypovolemia -creatinine improved from 1.9 to 1.7 -may be secondary to hypothyroidism -trend creatinine daily -with hyperkalemia of 6.4, ordered for calcium, dextrose, insulin, recheck potassium within 4 hours -if worsening may need dialysis and transfer, but not indicated now 3. Hypotension -possibly secondary to hypovolemia -given hyperpigmentation and electrolyte abnormalities do wonder about etiology such as chronic adrenal insufficiency -for now order IV bolus if hypotensive -check ACTH, renin, aldosterone and AM cortisol -if hypotension worsens will need IV steroids for adrenal crisis, but currently responded well to IV bolus 4. History of toe infection -had been taking bactrim, but this was stopped -may be contributing to renal lab abnormalities -toe does not appear actively infected, hold antibiotics I have discussed plan and obtained history from patient and family at bedside. I have reviewed labs and imaging. I have discussed plan of care with ED physician and bedside nurse. CODE: Full Proxy: Rhea Burgos, mother Quality VTE Deep Vein Thrombosis/Pulmonary Embolism Present on Admission: No MIPS - Meds 'Current medications' to include all prescriptions, [id number] products, herbals, cannabis/cannabidiol products, and vitamin/mineral/dietary (nutritional) supplements. I have utilized all available resources to obtain, update, or review the patient?s current medications. [If Yes, STOP here]: Yes
[2023-06-17] MEDS: HEPARIN 5,000 UNIT/ML VIAL 5000 UNIT SUBCUT (20:35)
[2023-06-17 20:48] LABS: MRSA (Nasal) PCR Not Detected (Not Detect)
[2023-06-17 21:47] LABS: Blood Urea Nitrogen 23 mg/dL (9-20); Calcium 8.8 mg/dL (8.4-10.2); Carbon Dioxide 18 mmol/L (22-32); Chloride 90 mmol/L (98-107); Estimated Glomerular Filt Rate 55 mL/min (>60); Glucose 82 mg/dL (70-100); HEMOLYSIS 22 (0-50)
[2023-06-17 22:02] LABS: Sodium 117 mmol/L (137-145)
[2023-06-17] MEDS: SODIUM POLYSTYRENE SULFON/SORB 15 GM/60 ML CUP 30 GM PO (22:45)
[2023-06-17] MEDS: ALBUTEROL 2.5 MG/3 ML NEB (ADULT) INH (22:45)
[2023-06-18] VITALS (61 sets, daily range): BP systolic 77–119; BP diastolic 39–64; PULSE 66–132; RESP 11–32; TEMP 36.1–36.9; O2SAT 97–100
[2023-06-18 00:54] LABS: BUN Creatinine Ratio 14.5 (6-22); Blood Urea Nitrogen 21 mg/dL (9-20); Calcium 8.4 mg/dL (8.4-10.2); Carbon Dioxide 18 mmol/L (22-32); Chloride 91 mmol/L (98-107); Estimated Glomerular Filt Rate > 60 mL/min (>60); Glucose 109 mg/dL (70-100); HEMOLYSIS 17 (0-50); Potassium 4.7 mmol/L (3.4-5.1)
[2023-06-18 00:58] LABS: Sodium 119 mmol/L (137-145)
[2023-06-18] MEDS: LEVOTHYROXINE 25 MCG TABLET PO (06:29)
[2023-06-18 07:08] LABS: BUN Creatinine Ratio 12.9 (6-22); Blood Urea Nitrogen 18 mg/dL (9-20); Calcium 8.3 mg/dL (8.4-10.2); Carbon Dioxide 16 mmol/L (22-32); Chloride 94 mmol/L (98-107); Estimated Glomerular Filt Rate > 60 mL/min (>60); Glucose 95 mg/dL (70-100)
[2023-06-18 07:16] LABS: HEMOLYSIS 52 (0-50); Potassium 6.1 mmol/L (3.4-5.1)
[2023-06-18 07:17] LABS: Sodium 118 mmol/L (137-145)
[2023-06-18 07:39] LABS: Cortisol AM (Before 10AM) 4.53 ug/dL (4.46-22.7)
[2023-06-18] MEDS: CALCIUM GLUCONATE 4.65 MEQ in SODIUM CHLORIDE 0.9% 50 ML 180 MEQ IV (08:41)
[2023-06-18] MEDS: INSULIN REGULAR 100 UNIT/ML 3 ML VIAL 7 UNIT IV (08:42)
[2023-06-18] MEDS: DEXTROSE 50 % IN WATER 25 GM/50 ML SYRINGE IV ×3 (08:42→16:46)
--- NOTE | 2023-06-18 08:46 | CM.DANOTE ---
DCP: Case received, EMR reviewed and met with patient. Patient's father was at bedside. Introduced self and role. Was able to complete DCP assessment based upon information currently available. Patient is a 37 year old male who admitted yesterday afternoon to the care of the hospitalist team. PCP: [facility] (used to see Dr. Amador, but retired). Payer: confirmed: [employer]. Patient came to the hospital via private vehicle, was sent over from the walk in clinic with abdomen blood work, and was noted to be hyponatremic and hyperkalemic with VERONICA. Patient was complaining of increased shortness of breath with exertion, and malaise. Patient was admitted for acute hyponatremia, hypothyroidism, acute hyperkalemia. Met with patient in his room. He was sitting up in bed, his father at bedside. Prior, had just ambulated to the rest room. Confirmed that he resides in [place] alone, but family and brother live nearby. He is employed at [employer]. Patient indicated that he used to see Dr. Amador, had seen him right before he retired, has not yet seen anyone else in the clinic. P: DCP to continue to follow. Patient should be able to go home when deemed medically stable, but most likely will need to follow up at the [facility] with a new PCP. Greta Neri RN/Pmo Consultant Discharge Planning/Care Management CM Discharge Assessment Start: 06/18/23 08:45 Freq: Status: Active Protocol: Document 06/18/23 08:45 (Rec: 06/18/23 08:46 [id number]) Discharge Planning Assessment Assigned Junior Paralegal Greta Neri RN/Pmo Consultant Advance Directives? No History Provided By Patient,Medical Record Prior Living Arrangements Apartment/Condo Household Members spouse Type of transporation used prior to Drives own vehicle admit Independent with ADL's Yes Is patient alert and oriented? Yes Discharge Plan Home Transportation Arrangement Family Referrals Initiated None needed Whiteboard Updated in Patient Room with Yes name and ext. # of Junior Paralegal Review Status In Process Next Review Type Continued Stay Review
[2023-06-18] MEDS: HEPARIN 5,000 UNIT/ML VIAL 5000 UNIT SUBCUT ×2 (10:11→21:35)
[2023-06-18 10:48] LABS: BUN Creatinine Ratio 12.2 (6-22); Blood Urea Nitrogen 16 mg/dL (9-20); Calcium 8.9 mg/dL (8.4-10.2); Carbon Dioxide 21 mmol/L (22-32); Chloride 92 mmol/L (98-107); Estimated Glomerular Filt Rate > 60 mL/min (>60); Glucose 78 mg/dL (70-100); HEMOLYSIS < 15 (0-50); Potassium 5.3 mmol/L (3.4-5.1); Sodium 122 mmol/L (137-145)
--- NOTE | 2023-06-18 11:29 | PC.NURSE ---
Addendum entered by Bruna Archer R.N. 06/18/23 19:20: 3% Saline stopped per provider read back order via telophone. Addendum entered by Bruna Archer R.N. 06/18/23 18:49: Pt blood glucose came up to 93 then repeat 78, now comfortably resting with no s/s of hypoglycemia and eating dinner. Addendum entered by Bruna Archer R.N. 06/18/23 17:04: Blood glucose checked and it was 28, recheck 36. Pt A+O with signs and symptoms of anxiety and diaphoresis. D50 given and provider notified. Results consistent with pt receiving insulin and D50 and having previous hypoglycemic response last night. Addendum entered by Bruna Archer R.N. 06/18/23 16:01: Reported critical labs of Na 119 and K 6.2 to hospitalist upon receipt from lab around 1415. Called pharmacy regarding synthroid and lokelma administration - both PO at same time. Pharmacy said meds will compete for absorption and instructed to give lokelma first and then give synthroid 1.5-2h after. Addendum entered by Bruna Archer R.N. 06/18/23 13:30: Patient asked RN about vaping, using edibles/gummies, and drinking alcohol while in hospital. RN informed patient that while in hospital, patient was not permitted to do any outside medications, substances or drugs. RN said if patient was feeling nervous, patient could let RN know. Addendum entered by Bruna Archer R.N. 06/18/23 12:30: After shift change, RN reported critical labs of K and Na to hospitalist. Shortly after around 0750, pt stated that he had reaction to insulin/D50/Ca gluconate that was given yesterday. RN was unable to reach provider for 30 mins (called and messaged on Skai). When RN reached provider, RN explained patient's concerns. Provider said to give insulin/D50/ca gluconate and monitor for hypoglycemia. RN also asked about restricting patient's free water intake and provider said to not restrict based on mid-morning labs. Original Note: This am, 3% Saline was running without active order. Spoke with provider and he said leave running until 1000 labs resulted. When 1000 labs resulted, provider said ok to stop 3% Saline and not restart with new orders. Stopped 3% Saline at 1120.
[2023-06-18 14:27] LABS: BUN Creatinine Ratio 11.6 (6-22); Blood Urea Nitrogen 16 mg/dL (9-20); Calcium 8.5 mg/dL (8.4-10.2); Carbon Dioxide 22 mmol/L (22-32); Chloride 91 mmol/L (98-107); Estimated Glomerular Filt Rate > 60 mL/min (>60); Glucose 92 mg/dL (70-100); HEMOLYSIS < 15 (0-50)
[2023-06-18 14:29] LABS: Potassium 6.2 mmol/L (3.4-5.1)
[2023-06-18 14:32] LABS: Sodium 119 mmol/L (137-145)
[2023-06-18] MEDS: SODIUM CHLORIDE 3 % 150 ML 30 ML IV (14:41)
--- NOTE | 2023-06-18 14:57 | P.PN_ITS ---
Subjective Subjective Date Patient Seen: 06/18/23 Time Patient Seen: 08:00 Interval history: He says he feels better. He says yesterday he thinks his mentation was a little foggy which has resolved. Exam Vital Signs (past 8 hours): - 06/18/23 07:00 06/18/23 07:00 06/18/23 08:00 Temperature 98 F Pulse Rate 76 Respiratory Rate 15 Blood Pressure 103/62 Pulse Oximetry 99 Oxygen Delivery Method Room Air 06/18/23 07:30 06/18/23 07:31 06/18/23 07:31 Temperature Pulse Rate 83 84 Respiratory Rate 27 H 26 H Blood Pressure 110/63 Pulse Oximetry 99 99 Oxygen Delivery Method 06/18/23 08:00 06/18/23 08:00 06/18/23 08:30 Temperature Pulse Rate 78 88 Respiratory Rate 22 18 Blood Pressure 109/58 L Pulse Oximetry 100 99 Oxygen Delivery Method 06/18/23 08:31 06/18/23 08:31 06/18/23 09:00 Temperature Pulse Rate 83 89 Respiratory Rate 16 31 H Blood Pressure 111/54 L Pulse Oximetry 100 100 Oxygen Delivery Method 06/18/23 09:30 06/18/23 09:30 06/18/23 10:00 Temperature Pulse Rate 87 Respiratory Rate 14 Blood Pressure 110/62 106/61 Pulse Oximetry 100 Oxygen Delivery Method 06/18/23 10:00 06/18/23 12:00 06/18/23 10:34 Temperature Pulse Rate 85 108 H Respiratory Rate 19 Blood Pressure Pulse Oximetry 99 Oxygen Delivery Method Room Air 06/18/23 11:00 06/18/23 11:22 06/18/23 11:22 Temperature Pulse Rate 84 87 Respiratory Rate 26 H 27 H Blood Pressure 110/59 L Pulse Oximetry 100 100 Oxygen Delivery Method 06/18/23 11:23 06/18/23 11:23 06/18/23 11:30 Temperature Pulse Rate 87 83 Respiratory Rate 32 H 21 Blood Pressure 114/59 L Pulse Oximetry 100 100 Oxygen Delivery Method 06/18/23 12:00 06/18/23 12:30 06/18/23 13:00 Temperature Pulse Rate 83 78 78 Respiratory Rate 25 H 18 16 Blood Pressure Pulse Oximetry 99 99 Oxygen Delivery Method Fraction of Inspired Oxygen 21 SaO2/FiO2 Ratio 476 Oxygen Delivery Method Room Air Oxygen Flow Rate 0 Narrative Exam Narrative: GEN: no acute distress HEENT: moist mucous membranes CV: regular rate and rhythm, no murmurs PULM: clear bilaterally ABD: soft, nontender, nondistended, no organomegaly, normal bowel sounds EXT: warm and well perfused no edema SKIN: hyperpigemented, dry NEURO: awake, alert, oriented, no focal deficits Objective Labs 06/17/23 10:35 06/18/23 14:19 Labs: Laboratory Results - last 24 hr 06/17/23 06/17/23 06/17/23 15:08 15:08 17:20 Sodium 116 L* Potassium 6.4 H* Chloride 88 L Carbon Dioxide 19 L BUN 26 H Creatinine 1.77 H Estimated GFR 50 L BUN/Creatinine Ratio 14.7 Glucose 81 Calcium 8.2 L Random Cortisol 4.33 Cortisol AM Sample Nasal Screen MRSA (PCR) Not detected 06/17/23 06/18/23 06/18/23 20:30 00:30 06:04 Sodium 117 L* 119 L* Cancelled Potassium 6.0 H 4.7 D Cancelled Chloride 90 L 91 L Cancelled Carbon Dioxide 18 L 18 L Cancelled BUN 23 H 21 H Cancelled Creatinine 1.64 H 1.45 H Cancelled Estimated GFR 55 L > 60 Cancelled BUN/Creatinine Ratio 14.0 14.5 Cancelled Glucose 82 109 H Cancelled Calcium 8.8 8.4 Cancelled Random Cortisol Cortisol AM Sample Nasal Screen MRSA (PCR) 06/18/23 06/18/23 06/18/23 06:04 10:21 14:19 Sodium 118 L* 122 L 119 L* Potassium 6.1 H D 5.3 H 6.2 H Chloride 94 L 92 L 91 L Carbon Dioxide 16 L 21 L 22 BUN 18 16 16 Creatinine 1.39 H 1.31 H 1.38 H Estimated GFR > 60 > 60 > 60 BUN/Creatinine Ratio 12.9 12.2 11.6 Glucose 95 78 92 Calcium 8.3 L 8.9 8.5 Random Cortisol Cortisol AM Sample 4.53 Nasal Screen MRSA (PCR) PENDING SALE TO [facility] Social History household members: spouse Smoking Status: Current every day smoker alcohol intake: current Assessment & Plan Assessment & Plan narrative: 1. Severe hyponatremia -he appear mildly hypovolemic, but not significantly so -etiology is possible hypovolemic, but there is not a clear etiology to cause such a severe hyponatremia -rather I suspect he may have hyponatremia secondary to hypothyroidism or other endocrine etiology -regardless given severe hyponatremia will order 3% hypertonic saline, plan to increase sodium greater than 120 -trend sodium q4h -once sodium over 120, would stop hypertonic saline and start gentle IV normal saline -ordered synthroid for concern for hypothyroidism given high tsh, low t4 -starting dose of synthroid of 1.6mcg/kg, which is 134mcg, so will start at 125mcg 2. VERONICA with hyperkalemia -etiology not clear, possible hypovolemia -creatinine improved from 1.9 to 1.3 -may be secondary to hypothyroidism -trend creatinine daily -with hyperkalemia, ordered for calcium, dextrose, insulin, recheck potassium within 4 hours -ordered for lokelma as well -if worsening may need dialysis and transfer, but not indicated now 3. Hypotension -possibly secondary to hypovolemia -given hyperpigmentation and electrolyte abnormalities do wonder about etiology such as chronic adrenal insufficiency, however cortisol in AM was within normal range -for now order IV bolus if hypotensive -check ACTH, renin, aldosterone which are pending -if hypotension worsens will consider IV steroids for adrenal crisis, but currently responded well to IV bolus 4. History of toe infection -had been taking bactrim, but this was stopped -may be contributing to renal lab abnormalities -toe does not appear actively infected, hold antibiotics 5. Esophageal thickening -when stable would recommend EGD for further evaluation 6. Lumbar verterbral sclerotic region -small soft tissue nodules lateral to thyroid also noted -ordered PTH, but calcium has been normal, so doubt this as cause -may need further workup pending above clinical course I have discussed plan and obtained history from patient and family at bedside. I have reviewed labs and imaging. I have discussed plan of care with ED physician and bedside nurse. CODE: Full Proxy: Rhea Burgos, mother Quality VTE Deep Vein Thrombosis/Pulmonary Embolism Present on Admission: No
[2023-06-18] MEDS: SODIUM ZIRCONIUM CYCLOSILICATE 10 GM POWD.PACK PO ×2 (15:43→21:36)
[2023-06-18] MEDS: INSULIN REGULAR 100 UNIT/ML 3 ML VIAL 10 UNIT IV (15:44)
[2023-06-18] MEDS: LEVOTHYROXINE 100 MCG TABLET PO (17:45)
[2023-06-18 18:26] LABS: BUN Creatinine Ratio 12.4 (6-22); Blood Urea Nitrogen 16 mg/dL (9-20); Calcium 8.6 mg/dL (8.4-10.2); Carbon Dioxide 21 mmol/L (22-32); Chloride 91 mmol/L (98-107); Estimated Glomerular Filt Rate > 60 mL/min (>60); Glucose 75 mg/dL (70-100); HEMOLYSIS < 15 (0-50); Potassium 5.2 mmol/L (3.4-5.1); Sodium 120 mmol/L (137-145)
[2023-06-18] MEDS: SODIUM CHLORIDE 0.9% 1,000 ML 125 ML IV (19:26)
[2023-06-18] MEDS: diphenhydrAMINE 25 MG TABLET PO (21:35)
[2023-06-18] MEDS: ACETAMINOPHEN 325 MG TABLET 650 MG PO (21:35)
[2023-06-18 22:07] LABS: BUN Creatinine Ratio 10.1 (6-22); Blood Urea Nitrogen 15 mg/dL (9-20); Calcium 8.3 mg/dL (8.4-10.2); Carbon Dioxide 21 mmol/L (22-32); Chloride 92 mmol/L (98-107); Estimated Glomerular Filt Rate > 60 mL/min (>60); Glucose 79 mg/dL (70-100); HEMOLYSIS < 15 (0-50); Sodium 120 mmol/L (137-145)
[2023-06-18 22:12] LABS: Potassium 5.5 mmol/L (3.4-5.1)
[2023-06-19] VITALS (35 sets, daily range): BP systolic 92–125; BP diastolic 38–65; PULSE 70–107; RESP 12–31; TEMP 36.3–36.9; O2SAT 92–100
[2023-06-19 02:14] LABS: BUN Creatinine Ratio 9.9 (6-22); Blood Urea Nitrogen 13 mg/dL (9-20); Calcium 7.9 mg/dL (8.4-10.2); Carbon Dioxide 20 mmol/L (22-32); Chloride 92 mmol/L (98-107); Estimated Glomerular Filt Rate > 60 mL/min (>60); Glucose 96 mg/dL (70-100); HEMOLYSIS < 15 (0-50); Sodium 120 mmol/L (137-145)
[2023-06-19 02:24] LABS: Potassium 5.8 mmol/L (3.4-5.1)
[2023-06-19] MEDS: SODIUM CHLORIDE 0.9% 1,000 ML 125 ML IV ×2 (02:36→10:46)
[2023-06-19] MEDS: LEVOTHYROXINE 25 MCG TABLET 125 MCG PO (05:38)
[2023-06-19 07:31] LABS: Hematocrit 40.1 % (41-53); Hemoglobin 14.2 g/dL (13.5-17.5); Mean Corpuscular HGB Conc 35.5 % (30-36); Mean Corpuscular Hemoglobin 31.3 PG (26-34); Mean Corpuscular Volume 88.4 fL (80-100); Platelet Count 210 X10^3/uL (150-400); Red Blood Cell Count 4.54 X10^6/uL (4.5-5.9); Red Cell Distribution Width 12.5 % (11.6-14.8); White Blood Cell Count 4.8 X10^3/uL (4.5-11.0)
[2023-06-19 07:41] LABS: BUN Creatinine Ratio 8.9 (6-22); Blood Urea Nitrogen 11 mg/dL (9-20); Calcium 8.1 mg/dL (8.4-10.2); Carbon Dioxide 20 mmol/L (22-32); Chloride 93 mmol/L (98-107); Estimated Glomerular Filt Rate > 60 mL/min (>60); Glucose 93 mg/dL (70-100); HEMOLYSIS < 15 (0-50); Potassium 5.5 mmol/L (3.4-5.1); Sodium 122 mmol/L (137-145)
[2023-06-19 08:26] LABS: Uric Acid 5.7 mg/dL (3.5-8.5)
[2023-06-19] MEDS: NICOTINE 7 MG PATCH TOP (08:31)
[2023-06-19] MEDS: HEPARIN 5,000 UNIT/ML VIAL 5000 UNIT SUBCUT ×2 (08:31→21:43)
[2023-06-19] MEDS: PANTOPRAZOLE 40 MG VIAL IV (08:32)
[2023-06-19] MEDS: SODIUM ZIRCONIUM CYCLOSILICATE 10 GM POWD.PACK PO ×3 (08:32→21:44)
--- NOTE | 2023-06-19 14:03 | P.PN_ITS ---
Subjective Subjective Interval history: No issues. Denoes pain or dyspnea. No fatigue. Exam Vital Signs (past 8 hours): - 06/19/23 06:05 06/19/23 06:08 06/19/23 06:08 Temperature Pulse Rate 96 H 91 H Respiratory Rate 30 H 31 H Blood Pressure 92/38 L Pulse Oximetry 100 Oxygen Flow Rate 06/19/23 06:09 06/19/23 06:09 06/19/23 07:00 Temperature 97.9 F Pulse Rate 88 81 Respiratory Rate 18 20 Blood Pressure 96/54 L 114/54 L Pulse Oximetry 99 98 Oxygen Flow Rate 0 06/19/23 09:00 06/19/23 11:00 06/19/23 12:08 Temperature 98.4 F Pulse Rate 89 83 82 Respiratory Rate 20 20 26 H Blood Pressure 109/56 L 115/55 L 103/51 L Pulse Oximetry 99 98 99 Oxygen Flow Rate Fraction of Inspired Oxygen 21 SaO2/FiO2 Ratio 476 Oxygen Delivery Method Room Air Oxygen Flow Rate 0 Narrative Exam Narrative: NAD, fluent speech Lungs clear Heart regular Hyperpigmentation of face and arms No leg edema. Objective Labs 06/19/23 07:18 06/19/23 07:18 Labs: Laboratory Results - last 24 hr 06/18/23 06/18/23 06/18/23 09:00 14:19 17:55 WBC RBC Hgb Hct MCV MCH MCHC RDW Plt Count Sodium 119 L* 120 L Potassium 6.2 H 5.2 H Chloride 91 L 91 L Carbon Dioxide 22 21 L BUN 16 16 Creatinine 1.38 H 1.29 H Estimated GFR > 60 > 60 BUN/Creatinine Ratio 11.6 12.4 Glucose 92 75 Uric Acid Calcium 8.5 8.6 ACTH 637.0 H 06/18/23 06/19/23 06/19/23 21:30 01:50 07:18 WBC RBC Hgb Hct MCV MCH MCHC RDW Plt Count Sodium 120 L 120 L 122 L Potassium 5.5 H 5.8 H 5.5 H Chloride 92 L 92 L 93 L Carbon Dioxide 21 L 20 L 20 L BUN 15 13 11 Creatinine 1.49 H 1.31 H 1.24 Estimated GFR > 60 > 60 > 60 BUN/Creatinine Ratio 10.1 9.9 8.9 Glucose 79 96 93 Uric Acid Calcium 8.3 L 7.9 L 8.1 L ACTH 06/19/23 06/19/23 07:18 07:18 WBC 4.8 RBC 4.54 Hgb 14.2 Hct 40.1 L MCV 88.4 MCH 31.3 MCHC 35.5 RDW 12.5 Plt Count 210 Sodium Potassium Chloride Carbon Dioxide BUN Creatinine Estimated GFR BUN/Creatinine Ratio Glucose Uric Acid 5.7 Calcium ACTH PFSH Social History household members: spouse Smoking Status: Current every day smoker alcohol intake: current Assessment & Plan Assessment & Plan narrative: [address] [address] Progress Note Patient: Ciaran Burgos MR#: [id number] : 1985 Acct:[id number] Age/Sex: 37 / M ? Date of Service: 06/17/23 Provider:?Antwon Posada MD Subjective Subjective Date Patient Seen: 06/18/23 Time Patient Seen: 08:00 Interval history: He says he feels better. He says yesterday he thinks his mentation was a little foggy which has resolved. Exam Vital Signs (past 8 hours): - ? 06/18/2307:00 06/18/2307:00 06/18/2308:00 Temperature ? 98 F ? Pulse Rate ? 76 ? Respiratory Rate ? 15 ? Blood Pressure 103/62 ? ? Pulse Oximetry ? 99 ? Oxygen Delivery Method ? ? Room Air ? 06/18/2307:30 06/18/2307:31 06/18/2307:31 Temperature ? ? ? Pulse Rate 83 84 ? Respiratory Rate 27 H 26 H ? Blood Pressure ? ? 110/63 Pulse Oximetry 99 99 ? Oxygen Delivery Method ? 06/18/2308:00 06/18/2308:00 06/18/2308:30 Temperature ? ? ? Pulse Rate ? 78 88 Respiratory Rate ? 22 18 Blood Pressure 109/58 L ? ? Pulse Oximetry ? 100 99 Oxygen Delivery Method ? 06/18/2308:31 06/18/2308:31 06/18/2309:00 Temperature ? ? ? Pulse Rate ? 83 89 Respiratory Rate ? 16 31 H Blood Pressure 111/54 L ? ? Pulse Oximetry ? 100 100 Oxygen Delivery Method ? 06/18/2309:30 06/18/2309:30 06/18/2310:00 Temperature ? ? ? Pulse Rate ? 87 ? Respiratory Rate ? 14 ? Blood Pressure 110/62 ? 106/61 Pulse Oximetry ? 100 ? Oxygen Delivery Method ? 06/18/2310:00 06/18/2312:00 06/18/2310:34 Temperature ? ? ? Pulse Rate 85 ? 108 H Respiratory Rate 19 ? ? Blood Pressure ? ? ? Pulse Oximetry 99 ?B ? Oxygen Delivery Method ? Room Air ? ? 06/18/2311:00 06/18/2311:22 06/18/2311:22 Temperature ? ? ? Pulse Rate 84 ? 87 Respiratory Rate 26 H ? 27 H Blood Pressure ? 110/59 L ? Pulse Oximetry 100 ? 100 Oxygen Delivery Method ? 06/18/2311:23 06/18/2311:23 06/18/2311:30 Temperature ? ? ? Pulse Rate ? 87 83 Respiratory Rate ? 32 H 21 Blood Pressure 114/59 L ? ? Pulse Oximetry ? 100 100 Oxygen Delivery Method ? 06/18/2312:00 06/18/2312:30 06/18/2313:00 Temperature ? ? ? Pulse Rate 83 78 78 Respiratory Rate 25 H 18 16 Blood Pressure ? ? ? Pulse Oximetry 99 99 ? Oxygen Delivery Method ? ? ? Fraction of Inspired Oxygen ? 21? SaO2/FiO2 Ratio ? 476 ? Oxygen Delivery Method? Room Air? Oxygen Flow Rate? 0 ? Narrative Exam Narrative: GEN: no acute distress HEENT: moist mucous membranes CV: regular rate and rhythm, no murmurs PULM: clear bilaterally ABD: soft, nontender, nondistended, no organomegaly, normal bowel sounds EXT: warm and well perfused no edema SKIN: hyperpigemented, dry NEURO: awake, alert, oriented, no focal deficits Objective Labs 06/17/23 10:35? 06/18/23 14:19? Labs: Laboratory Results - last 24 hr ? 06/17/23 06/17/23 06/17/23 ? 15:08 15:08 17:20 Sodium ?116 L* ? ? Potassium ?6.4 H* ? ? Chloride ?88 L ? ? Carbon Dioxide ?19 L ? ? BUN ?26 H ? ? Creatinine ?1.77 H ? ? Estimated GFR ?50 L ? ? BUN/Creatinine Ratio ?14.7 ? ? Glucose ?81 ? ? Calcium ?8.2 L ?B ? Random Cortisol ? ?4.33 ? Cortisol AM Sample ? ? ? Nasal Screen MRSA (PCR) ? ? ?Not detected ? 06/17/23 06/18/23 06/18/23 ? 20:30 00:30 06:04 Sodium ?117 L* ?119 L* ?Cancelled Potassium ?6.0 H ?4.7? D ?Cancelled Chloride ?90 L ?91 L ?Cancelled Carbon Dioxide ?18 L ?18 L ?Cancelled BUN ?23 H ?21 H ?Cancelled Creatinine ?1.64 H ?1.45 H ?Cancelled Estimated GFR ?55 L ?> 60 ?Cancelled BUN/Creatinine Ratio ?14.0 ?14.5 ?Cancelled Glucose ?82 ?109 H ?Cancelled Calcium ?8.8 ?8.4 ?Cancelled Random Cortisol ? ? ? Cortisol AM Sample ? ? ? D Nasal Screen MRSA (PCR) ? 06/18/23 06/18/23 06/18/23 ? 06:04 10:21 14:19 Sodium ?118 L* ?122 L ?119 L* Potassium ?6.1 H D ?5.3 H ?6.2 H Chloride ?94 L ?92 L ?91 L D Carbon Dioxide ?16 L ?21 L ?22 BUN ?18 ?16 ?16 Creatinine ?1.39 H ?1.31 H ?1.38 H Estimated GFR ?> 60 ?> 60 ?> 60 BUN/Creatinine Ratio ?12.9 ?12.2 ?11.6 Glucose ?95 ?78 ?92 Calcium ?8.3 L ?8.9 ?8.5 Random Cortisol ? ? ? Cortisol AM Sample ?4.53 ? ? Nasal Screen MRSA (PCR) ? ? ? PFSH Social History? household members:? spouse Smoking Status:? Current every day smoker alcohol intake:? current Assessment & Plan Assessment & Plan narrative: 1. Severe hyponatremia, POA. -euvolemic with high Ur Na. -rather I suspect he may have hyponatremia secondary to hypothyroidism or other endocrine etiology (normal cortisol). -was given hypertonic, will continue NS. Increase to 150 ml/hr. -ordered synthroid for concern for hypothyroidism given high tsh, low t4 -starting dose of synthroid of 1.6mcg/kg, which is 134mcg, so will start at 125mcg. Continue. 2. VERONICA with hyperkalemia, POA and improving. -etiology not clear, possible hypovolemia -creatinine improved from 1.9 to 1.3 -trend creatinine daily -continue lokelma , Q12 hr labs. 3. Hypotension, POA and resolved. -possibly secondary to hypovolemia -given hyperpigmentation and electrolyte abnormalities do wonder about etiology such as chronic adrenal insufficiency, however cortisol in AM was within normal range -for now order IV bolus if hypotensive -check ACTH (637), renin, aldosterone which are pending -if hypotension worsens will consider IV steroids for adrenal crisis, but currently responded well to IV bolus 4. Probable adrenal insufficiency with ACTH 637, POA. -cortrosyn stim and start steroids after. Not unstable and no adrenal crisis. ACTH very elevated. Hyperpigmented. 5. Hypothyroidism, POA. -cont synthroid. 6. Previous toe infection -had been taking bactrim, but this was stopped -may be contributing to renal lab abnormalities -toe does not appear actively infected, hold antibiotics 7. Esophageal thickening -when stable would recommend EGD for further evaluation (IP or OP). 8. Lumbar verterbral sclerotic region -small soft tissue nodules lateral to thyroid also noted -ordered PTH, but calcium has been normal, so doubt this as cause -may need further workup pending above clinical course I have discussed plan and obtained history from patient and family at bedside. I have reviewed labs and imaging. I have discussed plan of care with ED physician and bedside nurse. Time Spent With Patient Time with patient: 30 to 49 minutes with 50% spent counseling/coordinating care Quality VTE Deep Vein Thrombosis/Pulmonary Embolism Present on Admission: No
[2023-06-19 15:51] LABS: Cortisol Basline for Stim. 3.62 ug/dL
[2023-06-19 16:07] LABS: Cortisol 30 MIN Post Stim. 3.45 ug/dL
[2023-06-19 16:28] LABS: Cortisol 60 MIN Post Stim. 3.63 ug/dL
[2023-06-19] MEDS: SODIUM CHLORIDE 0.9% 1,000 ML 150 ML IV (18:06)
[2023-06-19] MEDS: HYDROCORTISONE 100 MG/2 ML VIAL IV ×2 (18:07→23:07)
[2023-06-19 19:58] LABS: Blood Urea Nitrogen 11 mg/dL (9-20); Calcium 7.7 mg/dL (8.4-10.2); Carbon Dioxide 18 mmol/L (22-32); Chloride 96 mmol/L (98-107); Estimated Glomerular Filt Rate > 60 mL/min (>60); Glucose 89 mg/dL (70-100); HEMOLYSIS 30 (0-50); Potassium 4.8 mmol/L (3.4-5.1); Sodium 122 mmol/L (137-145)
[2023-06-20] VITALS (34 sets, daily range): BP systolic 95–128; BP diastolic 47–63; PULSE 79–111; RESP 11–59; TEMP 35.9–36.6; O2SAT 97–100
[2023-06-20 05:16] LABS: BUN Creatinine Ratio 9.4 (6-22); Blood Urea Nitrogen 12 mg/dL (9-20); Calcium 7.8 mg/dL (8.4-10.2); Carbon Dioxide 18 mmol/L (22-32); Chloride 97 mmol/L (98-107); Estimated Glomerular Filt Rate > 60 mL/min (>60); Glucose 121 mg/dL (70-100); HEMOLYSIS < 15 (0-50); Sodium 122 mmol/L (137-145)
[2023-06-20 05:18] LABS: Potassium 6.5 mmol/L (3.4-5.1)
[2023-06-20] MEDS: SODIUM ZIRCONIUM CYCLOSILICATE 10 GM POWD.PACK PO ×2 (06:22→08:46)
[2023-06-20] MEDS: LEVOTHYROXINE 25 MCG TABLET 125 MCG PO (06:22)
[2023-06-20 06:27] LABS: Calcium 8.8 mg/dL (8.7-10.2); Parathyroid Hormone, Intact 126 pg/mL (15-65)
[2023-06-20] MEDS: CALCIUM GLUCONATE 4.65 MEQ in SODIUM CHLORIDE 0.9% 50 ML 180 MEQ IV (06:27)
[2023-06-20] MEDS: INSULIN REGULAR 100 UNIT/ML 3 ML VIAL 10 UNIT IV (06:28)
[2023-06-20] MEDS: DEXTROSE 50 % IN WATER 25 GM/50 ML SYRINGE IV (06:29)
[2023-06-20] MEDS: SODIUM CHLORIDE 0.9% 1,000 ML 150 ML IV ×2 (06:45→13:30)
--- NOTE | 2023-06-20 06:49 | PM.EVENT ---
Event Note Event Note (Rapid Response, Code, or fall): Hyperkalemia 6.5 recurrent +Insulin, D50, Lokelma, Calcium gluconate now. +Repeat K at 7 am MD [facility]
[2023-06-20 08:39] LABS: BUN Creatinine Ratio 8.8 (6-22); Blood Urea Nitrogen 10 mg/dL (9-20); Calcium 8.4 mg/dL (8.4-10.2); Carbon Dioxide 18 mmol/L (22-32); Chloride 97 mmol/L (98-107); Estimated Glomerular Filt Rate > 60 mL/min (>60); Glucose 80 mg/dL (70-100); HEMOLYSIS < 15 (0-50); Potassium 4.2 mmol/L (3.4-5.1); Sodium 125 mmol/L (137-145)
[2023-06-20] MEDS: HEPARIN 5,000 UNIT/ML VIAL 5000 UNIT SUBCUT ×2 (09:12→20:56)
[2023-06-20] MEDS: PANTOPRAZOLE 40 MG VIAL IV (09:12)
[2023-06-20] MEDS: ACETAMINOPHEN 325 MG TABLET 650 MG PO (10:26)
--- NOTE | 2023-06-20 10:27 | PM.CN.EICU ---
History of Present Illness Consult details IF CAMERA ACTIVATED, patient seen via real-time interactive audiovisual communication: Camera activated Date Patient Seen: 06/20/23 Chief complaint: tired, abnormal lab, sent by [facility] Reason for consult: hyperkalemia, hyponatremia. Requesting provider: Salvatore Nava Consent obtained for tele-financial accountant care: Yes Patient Location: ICU Provider location (State): [place] Other participants/roles: Dr. Nava, Bedside RN Narrative: 37 yo M who endorses SOB, fatigue off and on for a year, decrease appetite, dry skin. Had labs checked which showed hyponatremia and hyperkalemia. Initial Na 118, K 5.5 VERONICA with Cr 1.92, Elevated TSH, low free T4. Neg cxr. CT showing inflammatory changes in distal esophagus, with periesophgeal nodes, nodules posterieor to thyroid noted. Of note, patient has been on 7-10 days of bactrim for a toe infection and stopped it when he started feeling unwell. He was admitted to ICU on 06/17, initially started on isotonic fluids, and then changed to hypertonic saline. Last Na 125. He has had repeated epsiodes of hyperkalemia requiring treatment with d50/insulin/lokelma. Most recently this am- K 6.5 which is when e icu was consulted. He was started yesterday on hydrocortisone iv out of concern for addisons disease- aldosterone is low end of normal. Cortisol is low end of normal. ACTH high. PTH is high. He was started on levothyroxine given elevated TSH, low T4. [facility] Social History household members: spouse Smoking Status: Current every day smoker alcohol intake: current Current Medications Current Medications Medications: Home Medications No Known Home Medications 06/17/23 [History Confirmed 06/17/23] Visit Medications (administered) Generic Name Dose Route Start Last Admin Trade Name Freq PRN Reason Stop Dose Admin Acetaminophen 650 mg 06/18/23 20:58 06/20/23 10:26 Acetaminophen 325 Mg Tablet PO 650 mg Q6H PRN Administration Fever/Mild Pain (1-3) Dextrose 25 gm 06/17/23 15:40 06/18/23 16:46 Dextrose 50 % In Water 25 Gm/50 Ml Syringe IV 12.5 gm PRN PRN Administration Hypoglycemia Heparin Sodium (Porcine) 5,000 unit 06/17/23 21:00 06/20/23 09:12 Heparin 5,000 Unit/Ml Vial SUBCUT 5,000 unit BID AC Administration Hydrocortisone 100 mg 06/19/23 17:20 06/19/23 23:07 Hydrocortisone 100 Mg/2 Ml Vial IV 100 mg Q12HR AC Administration Sodium Chloride 1,000 mls @ 125 mls/hr 06/18/23 19:00 06/20/23 06:45 Normal Saline 0.9% IV 150 mls/hr CONT AC Administration Nicotine 7 mg 06/17/23 18:35 06/20/23 09:12 Nicotine 7 Mg Patch TOP Not Given DAILY AC Pantoprazole Sodium 40 mg 06/19/23 09:00 06/20/23 09:12 Pantoprazole 40 Mg Vial IV 40 mg DAILY AC Administration Review of Systems Review of Systems Narrative: as per HPI Exam Vital Signs (past 8 hours): - 06/20/23 03:00 06/20/23 04:00 06/20/23 04:25 Temperature Pulse Rate 91 H 79 85 Respiratory Rate 12 12 24 Blood Pressure Pulse Oximetry 99 Oxygen Flow Rate 06/20/23 04:25 06/20/23 04:26 06/20/23 04:26 Temperature Pulse Rate 87 Respiratory Rate 17 Blood Pressure 112/47 L 95/51 L Pulse Oximetry 100 Oxygen Flow Rate 06/20/23 04:31 06/20/23 05:00 06/20/23 08:30 Temperature 97.3 F L 97.9 F Pulse Rate 82 100 H Respiratory Rate 11 L 27 H Blood Pressure 100/57 L Pulse Oximetry 98 Oxygen Flow Rate 0 Fraction of Inspired Oxygen 21 SaO2/FiO2 Ratio 476 Oxygen Delivery Method Room Air Oxygen Flow Rate 0 Narrative Exam Narrative: well appearing, well nourished man sitting in bed no distress. Does appear desouza Resp Other: normal effort Cardio Other: sinus tach to 100 on tele Psych Other: alert and oriented. Objective Imaging Chest x-ray: Radiologist's impression: neg for acute process Labs 06/19/23 07:18 06/20/23 08:09 Labs: Laboratory Results - last 24 hr 06/17/23 06/17/23 06/19/23 10:35 15:08 14:28 Sodium Potassium Chloride Carbon Dioxide BUN Creatinine Estimated GFR BUN/Creatinine Ratio Glucose Calcium Aldosterone 1.2 PTH Intact 126 H Calcium (PTH Intact) 8.8 PTH Intact Intraop Comment Cortisol Response 06/19/23 06/20/23 06/20/23 18:30 04:20 08:09 Sodium 122 L 122 L 125 L Potassium 4.8 6.5 H* D 4.2 D Chloride 96 L 97 L 97 L Carbon Dioxide 18 L 18 L 18 L BUN 11 12 10 Creatinine 1.37 H 1.27 H 1.14 Estimated GFR > 60 > 60 > 60 BUN/Creatinine Ratio 8.0 9.4 8.8 Glucose 89 121 H 80 Calcium 7.7 L 7.8 L 8.4 Aldosterone PTH Intact Calcium (PTH Intact) PTH Intact Intraop Cortisol Response Assessment & Plan Assessment and plan (1) Acute hyponatremia: Status: Acute (2) Hypothyroid: Status: Acute (3) Acute hyperkalemia: Status: Acute (4) High serum parathyroid hormone (PTH): Status: Acute (5) High serum adrenocorticotropic hormone (ACTH): Status: Acute Assessment & Plan narrative: 37 yo M with new onset of fatigue, feeling unwell and multiple endocrine lab abnormalities- high TSH, high ACTH, High PTH acute hyperkalemia and acute hyponatremia. VERONICA. Initial hypotension that resolved with IV fluids. While he does have some sx concerning for addisons, his aldoseterone is normal (low end) as was his am and random cortisol before he was started on hydrocortisone- though low end of normal. Addisons can theoretically p/w normo, hyper or even hypo kalemia. So diagonsis is not clear cut. In addition he has elevated PTH and nodules noted on ct scan posterior to thyroid. calcium level LOW end of normal. Esophageal and periesophageal node inflammation on ct, of unknown significance. Ddx could also include multiple endocrine neoplasia The timing of his symptoms also correlate to a week of bactrim use. He stopped taking when he felt unwell and at that time hyperK and hypoNa noted, both of which can be caused by bactrim I recommend patient be transferred [place] for endocrine consult, as well as to facility that has nephrology services and can perform HD if necessary. While i am reassured that Cr is improving, his renal US show atrophic kidneys and he has had to be treated multiple times for hyperkalemia, the last K requiring treatment was 6.5 In mean time I agree with continuing steroids, hydrocortisone IV BID continue levothyroxine Continue hydration and encourage PO intake Trend Na, reassuring it is uptrending appropriately trend K at least TID Stop bactrim (as has already been done) Consult to GI given esophageal findings on CT, and heterogenous liver noted on renal US- he will likely need EGD recommend US of neck to eval parathyroid glands consider brain MRI to eval for pituitary adenoma Recommendations d/w Dr. Nava. Time Spent With Patient Time with patient: 70 minutes or more, with 50% spent counseling/coordinating (70 minutes of critical care, new patient consult, critical hyperkalemia, hyponatremia. )
[2023-06-20] MEDS: HYDROCORTISONE 100 MG/2 ML VIAL IV (11:16)
[2023-06-20 13:08] LABS: Blood Urea Nitrogen 10 mg/dL (9-20); Calcium 7.9 mg/dL (8.4-10.2); Carbon Dioxide 19 mmol/L (22-32); Chloride 98 mmol/L (98-107); Estimated Glomerular Filt Rate > 60 mL/min (>60); Glucose 110 mg/dL (70-100); HEMOLYSIS < 15 (0-50); Potassium 4.5 mmol/L (3.4-5.1); Sodium 124 mmol/L (137-145)
--- NOTE | 2023-06-20 14:58 | DI.MRI.S_ITS ---
PROCEDURE: MR BRAIN (PITUITARY) WWO CON INDICATIONS: eval for MEN TECHNIQUE: Noncontrast sagittal and axial FLAIR, axial gradient echo, axial diffusion and ADC through the brain. Thin-slice sagittal and coronal T1 spin echo, coronal T2 fast spin echo through the pituitary. After the administration contrast, optional dynamic coronal T1 spin echo, thin-slice coronal and sagittal T1 spin echo images through the pituitary fossa; axial and coronal and sagittal T1 spin echo with fat saturation through the brain. COMPARISON: None. FINDINGS: Image quality: Excellent. Pituitary Gland: No discrete pituitary mass lesion identified. No sellar or suprasellar mass. The infundibulum appears normal.. CSF Spaces: Ventricles are normal in size and shape. Basal cisterns are patent. No extra-axial fluid collections. Brain: No intracranial hemorrhage, mass, or mass effect. No abnormal intracranial enhancement. Jones-white matter interface is intact. Diffusion weighted images demonstrate no acute infarcts. Brainstem is normal. Normal intravascular flow voids are present. Skull and face: Calvarial marrow is normal in signal. Orbits appear normal. Sinuses: Sinuses and mastoids are clear. IMPRESSION: 1. No discrete pituitary mass lesion identified. Dictated by: Lauri Hobson M.D. on 06/21/2023 at 2:35 Approved by: Lauri Hobson M.D. on 06/21/2023 at 2:41
--- NOTE | 2023-06-20 14:59 | DI.US.S_ITS ---
PROCEDURE: US THYROID INDICATIONS: EVALUATE PARATHYROID ADENOMA TECHNIQUE: Real-time scanning was performed of the thyroid gland, with image documentation. COMPARISON: None. FINDINGS: Right: Thyroid lobe measures 5.4 x 2.7 x 2.2 cm, and is homogeneous in echotexture. Left: Thyroid lobe measures 4.9 x 2.4 x 1.9 cm, and is homogenous in echotexture. Isthmus: 6 mm thick. Thyroid parenchyma is diffusely heterogenous and hyperechoic. No ultrasound evidence of parathyroid adenoma. Incidental adjacent lymph nodes also appear normal without evidence of adenopathy Nodule number: 1 Location: Left mid Size: 0.9 x 0.7 x 0.5 cm. Composition: Solid Echogenicity: Hyperechoic Shape: wider than tall. Margins: Smooth Echogenic foci: None Total points: 3 ACR TI-RADS category: 3 Nodule number: 2 Location: Left lateral Size: 1.1 x 0.8 x 0.9 cm. Composition: Solid Echogenicity: Hyperechoic Shape: wider than tall. Margins: Smooth Echogenic foci: Non Total points: 3 ACR TI-RADS category: 3 IMPRESSION: Heterogenous thyroid parenchyma with mild hypervascularity. Small benign left-sided thyroid nodules. No follow-up required. No ultrasound evidence of parathyroid adenoma. Consider nuclear medicine scan ACR TI-RADS definitions and recommendations: TI-RADS 1 (benign): 0 points. FNA not needed. TI-RADS 2 (not suspicious): 2 points. FNA not needed. TI-RADS 3 (mildly suspicious): 3 points. * FNA if 2.5 cm or larger, follow up if 1.5 cm or larger (at 1, 3, and 5 years). TI-RADS 4 (moderately suspicious): 4-6 points. * FNA if 1.5 cm or larger, follow up if 1 cm or larger (at 1, 2, 3, and 5 years). TI-RADS 5 (highly suspicious): 7 points or more. * FNA if 1 cm or larger, follow up if 0.5 cm or larger (every year for 5 years). Approved by: Yonas Pulido M.D. on 06/20/2023 at 15:57
--- NOTE | 2023-06-20 18:56 | P.PN_ITS ---
Subjective Subjective Interval history: Patient nervous about what is going on with him. Has been googling everything. He really wants a smoke. Exam Vital Signs (past 8 hours): - 06/20/23 12:22 06/20/23 17:00 Temperature 96.7 F L 96.7 F L Pulse Rate 90 91 H Respiratory Rate 27 H 22 Blood Pressure 122/58 L 120/61 Pulse Oximetry 99 100 Oxygen Flow Rate 0 Fraction of Inspired Oxygen 21 SaO2/FiO2 Ratio 476 Oxygen Delivery Method Room Air Oxygen Flow Rate 0 Narrative Exam Narrative: NAD, fluent speech Lungs clear Heart regular Hyperpigmentation of face and arms. No leg edema. Objective Labs 06/19/23 07:18 06/20/23 12:43 Labs: Laboratory Results - last 24 hr 06/17/23 06/17/23 06/19/23 10:35 15:08 18:30 Sodium 122 L Potassium 4.8 Chloride 96 L Carbon Dioxide 18 L BUN 11 Creatinine 1.37 H Estimated GFR > 60 BUN/Creatinine Ratio 8.0 Glucose 89 Calcium 7.7 L Aldosterone 1.2 PTH Intact 126 H Calcium (PTH Intact) 8.8 PTH Intact Intraop Comment 06/20/23 06/20/23 06/20/23 04:20 08:09 12:43 Sodium 122 L 125 L 124 L Potassium 6.5 H* D 4.2 D 4.5 Chloride 97 L 97 L 98 Carbon Dioxide 18 L 18 L 19 L BUN 12 10 10 Creatinine 1.27 H 1.14 1.25 Estimated GFR > 60 > 60 > 60 BUN/Creatinine Ratio 9.4 8.8 8.0 Glucose 121 H 80 110 H Calcium 7.8 L 8.4 7.9 L Aldosterone PTH Intact Calcium (PTH Intact) PTH Intact Intraop PFSH Social History household members: spouse Smoking Status: Current every day smoker alcohol intake: current Assessment & Plan Assessment & Plan narrative: 1. Severe hyponatremia, POA. Improving. -euvolemic with high Ur Na. Na 117 on arrival. -rather I suspect he may have hyponatremia secondary to hypothyroidism or other endocrine etiology (normal cortisol). -was given hypertonic, will continue NS at 125cc/hr -Na now at 124 2. VERONICA with hyperkalemia, POA and improving. -etiology not clear, possible hypovolemia -creatinine improved from 1.9 to 1.25 -trend creatinine daily -continue lokelma , Q12 hr labs. 3. Hypotension, POA and resolved. -possibly secondary to hypovolemia -given hyperpigmentation and electrolyte abnormalities do wonder about etiology such as chronic adrenal insufficiency, however?cortisol in AM was within normal range -for now order IV bolus if hypotensive -check ACTH (637), renin, aldosterone normal 4. Probable adrenal insufficiency with ACTH 637, POA. -cortrosyn stim and start steroids after. Not unstable and no adrenal crisis. ACTH very elevated. Hyperpigmented. -started IV solu-cortef 100mg BID for possible [place]'s disease -thyroid US and MRI brain ordered to explore for possible MEN 5. Hypothyroidism, POA. -ordered synthroid for concern for hypothyroidism given high tsh, low t4 -starting dose of synthroid of 1.6mcg/kg, which is 134mcg, so will start at 125mcg. Continue. 6. Previous toe infection -had been?taking bactrim, but this was stopped -may be contributing to renal lab abnormalities -toe does not appear actively infected, hold antibiotics 7. Esophageal thickening -when stable would recommend EGD for further evaluation (IP or OP). 8. Lumbar verterbral sclerotic region -small soft tissue nodules lateral to thyroid also noted -ordered PTH, but calcium has been normal, so doubt this as cause -may need further workup pending above clinical course Quality VTE Deep Vein Thrombosis/Pulmonary Embolism Present on Admission: No
[2023-06-20 20:37] LABS: BUN Creatinine Ratio 10.1 (6-22); Blood Urea Nitrogen 13 mg/dL (9-20); Calcium 7.8 mg/dL (8.4-10.2); Carbon Dioxide 18 mmol/L (22-32); Chloride 98 mmol/L (98-107); Estimated Glomerular Filt Rate > 60 mL/min (>60); Glucose 102 mg/dL (70-100); HEMOLYSIS < 15 (0-50); Potassium 4.7 mmol/L (3.4-5.1); Sodium 125 mmol/L (137-145)
--- NOTE | 2023-06-20 21:41 | PM.ICURNDS ---
- Date Patient Seen: 06/20/23 Time Patient Seen: 21:30 :: This patient was seen via real time interactive two-way audiovisual telecommunication. Note: 37 y.o. male undergoing endocrine workup for hypoNa+, VERONICA, elevated PTH, elevated ACTH. HyperK+ has resolved. On RA, hemodynamically stable. INTERVENTIONS: 1) Attempted to order urine eosinophils but could not locate order in [employer] 2) Increased heparin VTE prophylaxis to q8H Discussed w/ RN.
[2023-06-20] MEDS: SODIUM CHLORIDE 0.9% 1,000 ML 125 ML IV (23:17)
[2023-06-21] VITALS (26 sets, daily range): BP systolic 101–107; BP diastolic 61; PULSE 73–102; RESP 10–37; TEMP 36.8; O2SAT 98–100
[2023-06-21] MEDS: HYDROCORTISONE 100 MG/2 ML VIAL IV ×2 (00:03→12:46)
[2023-06-21] MEDS: LEVOTHYROXINE 125 MCG TABLET PO (05:13)
[2023-06-21] MEDS: PANTOPRAZOLE DR 40 MG TABLET PO (05:13)
[2023-06-21] MEDS: HEPARIN 5,000 UNIT/ML VIAL 5000 UNIT SUBCUT ×3 (05:14→21:07)
[2023-06-21 05:43] LABS: Chloride 100 mmol/L (98-107); HEMOLYSIS < 15 (0-50)
[2023-06-21 05:45] LABS: BUN Creatinine Ratio 9.2 (6-22); Blood Urea Nitrogen 10 mg/dL (9-20); Calcium 7.9 mg/dL (8.4-10.2); Carbon Dioxide 21 mmol/L (22-32); Estimated Glomerular Filt Rate > 60 mL/min (>60); Glucose 110 mg/dL (70-100); Potassium 4.5 mmol/L (3.4-5.1); Sodium 128 mmol/L (137-145)
[2023-06-21] MEDS: SODIUM CHLORIDE 0.9% 1,000 ML 125 ML IV (07:03)
--- NOTE | 2023-06-21 09:21 | PM.PN.EICU ---
Subjective Subjective IF CAMERA ACTIVATED, patient seen via real-time interactive audiovisual communication: Camera activated Consent obtained for tele-early childhood coordinator care: Yes Patient Location: ICU Provider location (State): Other participants/roles: MD, RN Interval history: Assessment and plan (1) Acute hyponatremia: ?Status:?Acute (2) Hypothyroid: ?Status:?Acute (3) Acute hyperkalemia: ?Status:?Acute (4) High serum parathyroid hormone (PTH): ?Status:?Acute (5) High serum adrenocorticotropic hormone (ACTH): ?Status:?Acute Recommendation Checking UA, urine sodium & osm Pending transfer for endocrine eval Conrinue hydrocortisone IV BID continue levothyroxine Stop IV fluid, limit free water intake to <1L, trend sodium level q12h , goal normal over the next 24 hr ( consider adding 1 gm Salt tab Q8h if soidum level is not trending up as liked Need GI eval for esophageal findings on CT, and heterogenous liver noted on renal US On SC heparin and PPI Current Medications Current Medications Medications: Visit Medications (administered) Generic Name Dose Route Start Last Admin Trade Name Freq PRN Reason Stop Dose Admin Acetaminophen 650 mg 06/18/23 20:58 06/20/23 10:26 Acetaminophen 325 Mg Tablet PO 650 mg Q6H PRN Administration Fever/Mild Pain (1-3) Dextrose 25 gm 06/17/23 15:40 06/18/23 16:46 Dextrose 50 % In Water 25 Gm/50 Ml Syringe IV 12.5 gm PRN PRN Administration Hypoglycemia Heparin Sodium (Porcine) 5,000 unit 06/20/23 22:00 06/21/23 05:14 Heparin 5,000 Unit/Ml Vial SUBCUT 5,000 unit Q8HR AC Administration Hydrocortisone 100 mg 06/19/23 17:20 06/21/23 00:03 Hydrocortisone 100 Mg/2 Ml Vial IV 100 mg Q12HR AC Administration Sodium Chloride 1,000 mls @ 125 mls/hr 06/18/23 19:00 06/21/23 07:03 Normal Saline 0.9% IV 125 mls/hr CONT AC Administration Levothyroxine Sodium 125 mcg 06/21/23 06:00 06/21/23 05:13 Levothyroxine 125 Mcg Tablet PO 125 mcg DAILY@0600 AC Administration Pantoprazole Sodium 40 mg 06/21/23 06:00 06/21/23 05:[address] 40 Mg Tablet PO 40 mg 0600 [facility] Administration Objective Labs 06/19/23 07:18 06/21/23 05:25 Labs: Laboratory Results - last 24 hr 06/20/23 06/20/23 06/21/23 12:43 20:00 05:25 Sodium 124 L 125 L 128 L Potassium 4.5 4.7 4.5 Chloride 98 98 100 Carbon Dioxide 19 L 18 L 21 L BUN 10 13 10 Creatinine 1.25 1.29 H 1.09 Estimated GFR > 60 > 60 > 60 BUN/Creatinine Ratio 8.0 10.1 9.2 Glucose 110 H 102 H 110 H Calcium 7.9 L 7.8 L 7.9 L Exam Vital Signs (past 8 hours): - 06/21/23 02:00 06/21/23 03:00 06/21/23 04:00 Pulse Rate 73 75 73 Respiratory Rate 11 L 11 L 11 L Oxygen Delivery Method 06/21/23 04:00 06/21/23 08:00 Pulse Rate Respiratory Rate Oxygen Delivery Method Room Air Room Air Fraction of Inspired Oxygen 21 SaO2/FiO2 Ratio 476 Oxygen Delivery Method Room Air Oxygen Flow Rate 0 Quality TeleICU VTE Deep Vein Thrombosis/Pulmonary Embolism Present on Admission: No
[2023-06-21 11:42] LABS: Renin Activity 23.521 ng/mL/hr (0.167-5.380)
[2023-06-21 12:36] LABS: Sodium 126 mmol/L (137-145)
[2023-06-21] MEDS: SODIUM CHLORIDE 1,000 MG TABLET 1000 MG PO ×2 (13:10→17:52)
[2023-06-21 16:10] LABS: Osmolality Urine 248 mOsmol/kg (.)
--- NOTE | 2023-06-21 17:16 | PM.PN.1 ---
Subjective Subjective Interval history: Patient feeling fine today. Referral faxed to [facility] for appt to workup [place]'s further. Na dipped from 128 to 126 so now on fluid restriction and salt tabs. Exam Vital Signs (past 8 hours): - 06/21/23 14:49 Temperature 98.2 F Pulse Rate 90 Respiratory Rate 16 Blood Pressure 107/61 Pulse Oximetry 98 Oxygen Flow Rate 0 Fraction of Inspired Oxygen 21 SaO2/FiO2 Ratio 476 Oxygen Delivery Method Room Air Oxygen Flow Rate 0 Narrative Exam Narrative: NAD, fluent speech Lungs clear Heart regular Hyperpigmentation of face and arms. No leg edema. Objective Labs 06/19/23 07:18 06/21/23 12:15 Labs: Laboratory Results - last 24 hr 06/17/23 06/19/23 06/20/23 10:35 22:55 20:00 Sodium 125 L Potassium 4.7 Chloride 98 Carbon Dioxide 18 L BUN 13 Creatinine 1.29 H Estimated GFR > 60 BUN/Creatinine Ratio 10.1 Glucose 102 H Calcium 7.8 L Renin Activity 23.521 H Urine Osmolality 248 06/21/23 06/21/23 05:25 12:15 Sodium 128 L 126 L Potassium 4.5 Chloride 100 Carbon Dioxide 21 L BUN 10 Creatinine 1.09 Estimated GFR > 60 BUN/Creatinine Ratio 9.2 Glucose 110 H Calcium 7.9 L Renin Activity Urine Osmolality [facility] Social History household members: spouse Smoking Status: Current every day smoker alcohol intake: current Assessment & Plan Assessment & Plan narrative: 1. Severe hyponatremia, POA. Improving. -euvolemic with high Ur Na. Na 117 on arrival. -rather I suspect he may have hyponatremia secondary to hypothyroidism or other endocrine etiology (normal cortisol). -was given hypertonic, then NS at 125cc/hr -Na now at 128 but dipped to 126 so IVF stopped -continue fluid restriction and salt tabs 2. VERONICA with hyperkalemia, POA and improving. -etiology not clear, possible hypovolemia -creatinine improved from 1.9 to 1.25 -trend creatinine daily -continue lokelma , Q12 hr labs. 3. Hypotension, POA and resolved. -possibly secondary to hypovolemia -given hyperpigmentation and electrolyte abnormalities do wonder about etiology such as chronic adrenal insufficiency, however?cortisol in AM was within normal range -for now order IV bolus if hypotensive 4. Probable adrenal insufficiency with ACTH 637, POA. -cortrosyn stim and start steroids after. Not unstable and no adrenal crisis. ACTH very elevated. Hyperpigmented. -started IV solu-cortef 100mg BID for possible [place]'s disease -thyroid US and MRI brain were unremarkable for any adenomas -ACTH (637), renin, aldosterone normal -outpatient referral made to [facility] with Dr. Antonio for f/u -changed IV solu-cortef to po hydrocortisone 15mg at 0600 and 10mg at 1400 daily 5. Hypothyroidism, POA. -ordered synthroid for concern for hypothyroidism given high tsh, low t4 -starting dose of synthroid of 1.6mcg/kg, which is 134mcg, so will start at 125mcg. Continue. 6. Previous toe infection -had been?taking bactrim, but this was stopped -may be contributing to renal lab abnormalities -toe does not appear actively infected, hold antibiotics 7. Esophageal thickening -when stable would recommend EGD for further evaluation (IP or OP). 8. Lumbar verterbral sclerotic region -small soft tissue nodules lateral to thyroid also noted -ordered PTH, but calcium has been normal, so doubt this as cause -may need further workup pending above clinical course Dispo: Home in 1-2 days pending improvement in sodium and tolerating po steroids. Quality VTE Deep Vein Thrombosis/Pulmonary Embolism Present on Admission: No
[2023-06-21 19:36] LABS: BUN Creatinine Ratio 11.9 (6-22); Blood Urea Nitrogen 12 mg/dL (9-20); Calcium 8.5 mg/dL (8.4-10.2); Carbon Dioxide 19 mmol/L (22-32); Chloride 99 mmol/L (98-107); Estimated Glomerular Filt Rate > 60 mL/min (>60); Glucose 104 mg/dL (70-100); HEMOLYSIS 16 (0-50); Potassium 4.7 mmol/L (3.4-5.1); Sodium 127 mmol/L (137-145)
[2023-06-22 01:19] VITALS: BP 94/53; PULSE 75; RESP 14; TEMP 36.4; O2SAT 98
[2023-06-22] MEDS: PANTOPRAZOLE DR 40 MG TABLET PO (05:13)
[2023-06-22] MEDS: LEVOTHYROXINE 125 MCG TABLET PO (05:13)
[2023-06-22] MEDS: HEPARIN 5,000 UNIT/ML VIAL 5000 UNIT SUBCUT ×3 (05:13→21:38)
[2023-06-22] MEDS: HYDROCORTISONE 10 MG TABLET 15 MG PO (05:13)
[2023-06-22 05:50] LABS: BUN Creatinine Ratio 10.7 (6-22); Blood Urea Nitrogen 11 mg/dL (9-20); Calcium 8.6 mg/dL (8.4-10.2); Carbon Dioxide 22 mmol/L (22-32); Chloride 98 mmol/L (98-107); Estimated Glomerular Filt Rate > 60 mL/min (>60); Glucose 92 mg/dL (70-100); HEMOLYSIS < 15 (0-50); Potassium 4.1 mmol/L (3.4-5.1); Sodium 126 mmol/L (137-145)
[2023-06-22] MEDS: SODIUM CHLORIDE 1,000 MG TABLET 1000 MG PO (08:29)
[2023-06-22] MEDS: FLUDROCORTISONE 0.1 MG TABLET 0.05 MG PO (08:29)
[2023-06-22 09:00] VITALS: BP 96/58; PULSE 78; RESP 18; TEMP 36.6; O2SAT 100
[2023-06-22 11:55] VITALS: BP 96/55; PULSE 76; RESP 18; TEMP 36.2; O2SAT 99
[2023-06-22] MEDS: HYDROCORTISONE 10 MG TABLET PO (14:06)
--- NOTE | 2023-06-22 14:49 | PM.PN.1 ---
Subjective Subjective Date Patient Seen: 06/22/23 Time Patient Seen: 08:00 Interval history: He feels well today. Exam Vital Signs (past 8 hours): - 06/22/23 07:00 06/22/23 09:00 06/22/23 11:55 Temperature 97.8 F 97.1 F L Pulse Rate 78 76 Respiratory Rate 18 18 Blood Pressure 96/58 L 96/55 L Pulse Oximetry 100 99 Oxygen Delivery Method Room Air Oxygen Flow Rate 0 0 Fraction of Inspired Oxygen 21 SaO2/FiO2 Ratio 476 Oxygen Delivery Method Room Air Oxygen Flow Rate 0 Narrative Exam Narrative: GEN: no acute distress PULM: clear bilaterally SKIN: hyperpigmented Objective Labs 06/19/23 07:18 06/22/23 05:24 Labs: Laboratory Results - last 24 hr 06/19/23 06/21/23 06/22/23 22:55 19:00 05:24 Sodium 127 L 126 L Potassium 4.7 4.1 Chloride 99 98 Carbon Dioxide 19 L 22 BUN 12 11 Creatinine 1.01 1.03 Estimated GFR > 60 > 60 BUN/Creatinine Ratio 11.9 10.7 Glucose 104 H 92 Calcium 8.5 8.6 Urine Osmolality 248 PFSH Social History household members: spouse Smoking Status: Current every day smoker alcohol intake: current Assessment & Plan Assessment & Plan narrative: 1. Severe hyponatremia, POA. Improving. -euvolemic with high Ur Na. Na 117 on arrival. -rather I suspect he may have hyponatremia secondary to hypothyroidism or adrenal insufficiency. -was given hypertonic, then NS at 125cc/hr -Na now at 126 -start fludrocortisone -trend sodium daily 2. VERONICA with hyperkalemia, POA and improving. -etiology likely hypovolemia -creatinine improved from 1.9 -trend creatinine, potassium daily 3. Hypotension, POA and resolved. -possibly secondary to hypovolemia -given hyperpigmentation and electrolyte abnormalities do wonder about etiology such as chronic adrenal insufficiency -for now order IV bolus if hypotensive 4. Probable adrenal insufficiency with ACTH 637, POA. -cosyntropin stim test showed no response for cortisol -ACTH (637), renin, aldosterone normal -started steroids for possible addisons disease at hydrocortisone 15mg at 0600 and 10mg at 1400 daily -thyroid US and MRI brain were unremarkable for any adenomas -outpatient referral made to [facility] with Dr. Antonio for f/u, but may need referral from pcp 5. Hypothyroidism, POA. -ordered synthroid for concern for hypothyroidism given high tsh, low t4 -starting dose of synthroid of 1.6mcg/kg, which is 134mcg, so will start at 125mcg. Continue. 6. Previous toe infection -had been?taking bactrim, but this was stopped -may be contributing to renal lab abnormalities -toe does not appear actively infected, hold antibiotics 7. Esophageal thickening -when stable would recommend EGD for further evaluation (IP or OP). 8. Lumbar verterbral sclerotic region -small soft tissue nodules lateral to thyroid also noted -ordered PTH, but calcium has been normal, so doubt this as cause -may need further workup pending above clinical course Dispo: Home in 1-2 days pending improvement in sodium and tolerating po steroids. Quality VTE Deep Vein Thrombosis/Pulmonary Embolism Present on Admission: No
[2023-06-22 20:47] VITALS: BP 105/54; PULSE 82; RESP 16; TEMP 36.3; O2SAT 98
[2023-06-23] MEDS: LEVOTHYROXINE 125 MCG TABLET PO (05:36)
[2023-06-23] MEDS: HYDROCORTISONE 10 MG TABLET 15 MG PO (05:36)
[2023-06-23] MEDS: HEPARIN 5,000 UNIT/ML VIAL 5000 UNIT SUBCUT (05:36)
[2023-06-23] MEDS: PANTOPRAZOLE DR 40 MG TABLET PO (05:36)
[2023-06-23 06:09] VITALS: BP 101/59; PULSE 83; RESP 17; TEMP 36.1; O2SAT 100
[2023-06-23 06:54] LABS: BUN Creatinine Ratio 14.5 (6-22); Blood Urea Nitrogen 17 mg/dL (9-20); Calcium 8.4 mg/dL (8.4-10.2); Carbon Dioxide 24 mmol/L (22-32); Chloride 97 mmol/L (98-107); Estimated Glomerular Filt Rate > 60 mL/min (>60); Glucose 94 mg/dL (70-100); HEMOLYSIS < 15 (0-50); Potassium 3.7 mmol/L (3.4-5.1); Sodium 128 mmol/L (137-145)
[2023-06-23 08:37] VITALS: BP 108/52; PULSE 78; RESP 18; TEMP 36.2; O2SAT 98
[2023-06-23] MEDS: FLUDROCORTISONE 0.1 MG TABLET 0.05 MG PO (08:49)
[2023-06-23] MEDS: HYDROCORTISONE 10 MG TABLET PO (09:59)
--- NOTE | 2023-06-23 11:05 | PC.NURSE ---
Discharge Note Patient A&O, VSS, RA, no complaints of pain/discomfort. Patient agreeable to discharge plan. Discharge packet reviewed with patient, all questions/concerns addressed. PIV discontinued. Patient able to dress self and pack all belongings. Patient taken down to POV accompanied by mother.
--- NOTE | 2023-06-23 11:46 | CM.DPC ---
DCP Continued: From provider in rounds, patient will be cleared to d/c today. Provider reports patient may need a new PCP. AUTOMATIC CORN GRINDER OPERATOR entered room and introduced self and role. AUTOMATIC CORN GRINDER OPERATOR provided list of PCPs in area. Patient reported he had one in mind he was going to call first thing Saturday for a follow up appointment. Patient reports he will be d/c as soon as his mom comes to drive him home. Plan: d/c home and plans to follow up with new PCP, reaching out Saturday. Transport with mom in [facility] to home in [place]. No additional needs identified at this time. CM team will follow as needed. LARRY Braga
--- NOTE | 2023-06-24 22:00 | P.DS_ITS ---
History of Present Illness History of Present Illness Chief complaint: tired, abnormal lab, sent by [facility] Narrative: Mr. Burgos is a 37M smoker who presents to the hospital with shortness of breath and fatigue. He has had at least a year of intermittent fatigue. He has not seen anyone for this concern. He has noted over the last week exertional dyspnea. He has dry skin. He has a decreased appetite. He does not feel lightheaded or dehyrated. He has some hyperpigmented skin, but he says this happened over 10 year ago and has remained stable. He presented to same day clinic and labs noted to be hyponatremic, hyperkalemic, and VERONICA. He was sent to the ED. In the ED workup was done, vitals notable for afebrile, heart rate in the 80s, blood pressure 80s-110s/50s, sats 100% on room air. Labs reviewed by me and no table for WBC 6.1, hgb 16.2, plts 241. INR 1.2. Na 118, k 5.5, creatinine 1.92. CK 496. Trop normal. BNP negative. LFTs normal. Lactate 1.0. TSH elevated, free t4 low. UA negative for infection. Urine sodium 121, urine creatinine 286. Urine drug screen positive for marinjuana. COVID, flu, rsv negative. Chest xray reviewed by me and negative for any acute process. CT chest, abdomen, pelvis reviewed by me and notable for mild L2 sclerosis, and inflammatory changes of the esophagus, and tissue nodules posterior to the thyroid. He was initially admitted to the floor. Repeat labs showed worsening sodium to 116, and rising k to 6.4, he was transferred to the ICU for hypertonic saline and PICC was placed. He was ordered for calcium, insulin, dextrose. Discharge Providers Provider Date of admission: 06/17/23 14:52 Discharge Date: 06/23/23 Primary care physician: Fred Amador MD Consults: 06/19/23 08:09 Consult to Dietitian, Adult Routine Comment: Reason For Exam: Guidance on low potassium diet 06/20/23 07:55 Consult to Tele-senior structural engineer Routine Comment: Consulting Provider: [employer] Reason for consultation: [employer] Member services Discharge provider: Antwon Posada MD Summary Hospital Course Discharge Diagnosis: 1. Severe hyponatremia 2. VERONICA 3. Hyperkalemia 4. Hypothyroidism 5. Probable chronic adrenal insufficiency 6. Esophageal thickening 7. Elevated PTH 8. Lumbar vertebral sclerotic region Hospital Course: Mr. Burgos was admitted with shortness of breath and chronic fatigue. He was noted to have dry skin and hyperpigmentation. His workup showed a cortisol that was low normal, and an ACTH that was markedly high. His cosyntropin test showed minimal cortisol response consistent with adrenal insufficiency. He did not have evidence of adrenal crisis. He was started on steroids. He was also started on fludrocortisone. His TSH was high and free T4 low. He was started on synthroid. PTH was high, calium normal. Thyroid ultrasound showed benign nodules and no parathyroid adenoma. MRI brain showed normal pituitary. He had esophageal wall thickening, and has a history of reflux, and should have this followed and p ossibly will need EGD as outpatient. Initially he required hypertonic saline, and multiple doses of insulin, calcium, and lokelma for his hypernatremia and hyperkalemia. But with fluids his VERONICA resolved, and with starting hormones his sodium improved and he had no further episodes of hyperkalemia. He was discharged with encouragement to have follow up with his PCP that week, and referred to see ruby on rails web developer. Exam Vital Signs (past 8 hours): Fraction of Inspired Oxygen 21 SaO2/FiO2 Ratio 476 Oxygen Delivery Method Room Air Oxygen Flow Rate 0 Narrative Exam Narrative: GEN: no acute distress PULM: clear bilaterally SKIN: hyperpigmented Objective Labs 06/19/23 07:18 06/23/23 05:40 [facility] Social History household members: spouse Smoking Status: Current every day smoker alcohol intake: current Discharge Plan Discharge Plan Patient Disposition: Home Provider Discharge Comment: Mr. Burgos was admitted with weakness and shortness of breath. He was found to have an adrenal gland hormone deficiency, possibly Addisons disease. He also had low thyroid levels. This caused his electrolytes to be abnormal. He had some reflux as well. He was started on medications for all these issues and felt much better. He should follow up with his PCP within one week and make an appointment with endocrinology as soon as possible. Discharge orders & Medications Prescriptions: New pantoprazole 40 mg Tablet,Delayed Release (Dr/Ec) 40 mg PO 0600 Qty: 30 0RF levothyroxine [Synthroid] 125 mcg Tablet 125 mcg PO DAILY@0600 Qty: 30 0RF hydrocortisone [Cortef] 10 mg Tablet 10 mg PO 1400 Qty: 30 0RF hydrocortisone [Cortef] 10 mg Tablet 15 mg PO 0600 Qty: 60 0RF fludrocortisone 0.1 mg Tablet 0.05 mg PO DAILY Qty: 30 0RF Follow up/Referrals: [facility] [Provider Group] - 3-5 Days (pt of Dr. Amador, new diagnosis of adrenal insufficiency, hypothyroidism, causing severe electrolytes abnormalities. Also needs urgent endocrinology referral) Fred Amador MD [Primary Care Provider] - Other Ambulatory Orders: Referral to: (Schedule) Timeframe: 1 Week Location: Outside Services Ordered By: Salvatore Nava Diet/Activity/Treatments Diet: Regular Visit Report/Discharge Packet Instructions: [place]ana Disease, Low-Potassium Diet Stand Alone Forms: Patient Portal/API, Stroke Signs & Symptoms Discharge Data Primary Care Provider: Fred Amador Discharges patient from system. Discharge Date/Time: 06/23/23 10:45 Quality VTE Deep Vein Thrombosis/Pulmonary Embolism Present on Admission: No
== END 2023-06-23 10:45 | disposition home or self-care (01) | DRG 641 ==
LOC: ED 10:12 → AC 14:52 → ICU 16:37 → AC 06-22 18:16
PROVIDERS: Hospitalist; Student in an Organized Health Care Education/Training Program; Admitting Provider Internal Medicine; Emergency Provider Emergency Medicine; PCP Internal Medicine; Referring Provider Emergency Medicine; Visit Provider Internal Medicine
DX: E87.1 Hypo-osmolality and hyponatremia (principal); N17.9 Acute kidney failure, unspecified; E27.40 Unspecified adrenocortical insufficiency; R06.02 Shortness of breath; E87.5 Hyperkalemia; I95.9 Hypotension, unspecified; E03.9 Hypothyroidism, unspecified; E86.1 Hypovolemia; R89.1 Abnormal level of hormones in specimens from other organs, systems and tissues; F17.290 Nicotine dependence, other tobacco product, uncomplicated
CPT/HCPCS: 0241U; 36415; 36569; 36592; 51798; 70553; 71045; 71260; 74177; 76536; 76770; 80048; 80053; 80305; 81001; 82024; 82088; 82310; 82533; 82550; 82570; 82962; 83605; 83690; 83880; 83935; 83970; 84244; 84295; 84300; 84439; 84443; 84484; 84550; 85025; 85027; 85379; 85610; 87797; 93005; 99232; 99284; 99285; 99291; A9579; C9113; J0612; J1642; J1644; J1720; J7613; Q9967

== ENCOUNTER 2023-06-26 23:55 | Emergency (ER) | payer OTHER, SELFPAY ==
[2023-06-17 14:57] VITALS: BMI 25.9
[2023-06-26 23:55] VITALS: BP 125/60; PULSE 87; RESP 17; TEMP 36.6; O2SAT 98; BMI 25.8
--- NOTE | 2023-06-27 00:12 | ED.GENADULT ---
HPI - General Adult General Chief complaint: Anxiety Stated complaint: ANXIETY Time Seen by Provider: 06/27/23 00:12 Source: patient Mode of arrival: Ambulatory Limitations: no limitations History of Present Illness HPI narrative: Patient is a 37-year-old male. He recently was admitted to the hospital for several days for acute renal failure and hyponatremia and hyperkalemia and hypothyroid. Was found that he had adrenal insufficiency. He was subsequently discharged from the hospital. Is on Synthroid and also steroids. He is never really had an issue with anxiety in the past. He stated that he did have an episode with his father this afternoon that may have triggered some anxiety. He is here stating that he is feeling like he is having a panic attack. He is taking all of his medications as directed. He is a follow-up appointment later today with his primary doctor. He denies chest pain, shortness of breath or headache. Related Data Previous Rx's Medication Instructions Recorded fludrocortisone 0.1 mg tablet 0.05 mg PO DAILY #30 tabs 06/23/23 hydrocortisone 10 mg tablet 10 mg PO 1400 #30 tabs 06/23/23 (Cortef) hydrocortisone 10 mg tablet 15 mg PO 0600 #60 tabs 06/23/23 (Cortef) levothyroxine 125 mcg tablet 125 mcg PO DAILY@0600 #30 tabs 06/23/23 (Synthroid) pantoprazole 40 mg tablet,delayed 40 mg PO 0600 #30 tabs 06/23/23 release Allergies Allergy/AdvReac Type Severity Reaction Status Date / Time No Known Drug Allergies Allergy Unverified 06/17/23 07:25 Review of Systems Constitutional Constitutional: Reports system reviewed and no additional complaints, except as documented Cardiovascular Cardiovascular: Reports system reviewed and no additional complaints, except as documented Respiratory Respiratory: Reports system reviewed and no additional complaints, except as documented Gastrointestinal Gastrointestinal: Reports system reviewed and no additional complaints, except as documented Integumentary/Breasts Skin/Breast: Reports system reviewed and no additional complaints, except as documented Psychiatric Psychiatric: Reports system reviewed and no additional complaints, except as documented Hematologic/Lymphatic On Anticoagulants: No Patient History Social History household members: spouse Smoking Status: Current every day smoker alcohol intake: current Smoking Status: Current every day smoker tobacco type: vaping alcohol intake frequency: holidays/special occasions only Substance Use Type: marijuana Exam Initial Vital Signs Initial Vital Signs: Vital Signs Temperature 97.8 F 06/26/23 23:55 Pulse Rate 87 06/26/23 23:55 Respiratory Rate 17 06/26/23 23:55 Blood Pressure 125/60 06/26/23 23:55 Pulse Oximetry 98 06/26/23 23:55 Oxygen Delivery Method Room Air 06/26/23 23:55 Const General: cooperative, comfortable and No ill appearing Resp Effort & Inspection: normal respiratory effort Cardio Rate: regular rate GI Inspection: normal to inspection Neuro General: patient alert, patient awake, patient oriented x3 and moves all extremities Cognition: normal cognition Speech: speech normal Extrem General: capillary refill normal Psych Appearance: grossly normal and well kempt Mental Status: mental status grossly normal Speech and Movement: speech and movement normal Mood: congruent mood Scores GCS [place] coma scale eye opening: Spontaneous [place] coma scale verbal response: Orientated [place] coma scale motor response: Obey commands [place] coma scale total score: 15 Course Orders Ordered: Discontinued Medications Lorazepam (Lorazepam 0.5 Mg Tablet) 1 mg PO NOW ONE Stop: 06/27/23 00:13 Last Admin: 06/27/23 00:21 Dose: 1 mg Documented By: [place] Vital Signs Vital signs: Vital Signs - 8 hr 06/26/23 23:55 06/27/23 01:11 06/27/23 01:12 Temperature 97.8 F Pulse Rate 87 72 Respiratory Rate 17 Blood Pressure 125/60 110/64 Pulse Oximetry 98 99 Oxygen Delivery Method Room Air Room Air Medical Decision Making Medical Records Medical records reviewed: Yes I reviewed the patient's medical records. [facility] Narrative Medical decision making narrative: Patient is not clinically manic. He states that he feels like he is having a panic attack. Unsure whether or not this is from the steroids he is on or the event that he had with his father earlier this afternoon. He is no history of panic attacks. He was given an Ativan. He stated afterwards he feels much better. Had a long discussion with him regarding his symptoms. I feel that he most likely is having quite a bit of anxiety regarding his current health issue. We discussed the importance of him being on his steroid because of his adrenal issues. We will not make any changes to his medications currently. Will have him talk with his primary doctor at his regularly scheduled appointment this afternoon about his anxiety. Will discharge patient home. Given return precautions. Discharge Plan Departure Patient Disposition: Home Clinical Impression: Acute anxiety Instructions: DI for Anxiety -- Adult Activity Restrictions/Additional Instructions: I do recommend that you continue to take all of your medications as directed and keep your scheduled medical appointments specifically with your primary doctor later today. In the morning take your normal dose of steroid. Return to the emergency department for new symptoms. Prescriptions: No Action pantoprazole 40 mg Tablet,Delayed Release (Dr/Ec) 40 mg PO 0600 Qty: 30 0RF levothyroxine [Synthroid] 125 mcg Tablet 125 mcg PO DAILY@0600 Qty: 30 0RF hydrocortisone [Cortef] 10 mg Tablet 10 mg PO 1400 Qty: 30 0RF hydrocortisone [Cortef] 10 mg Tablet 15 mg PO 0600 Qty: 60 0RF fludrocortisone 0.1 mg Tablet 0.05 mg PO DAILY Qty: 30 0RF Referrals: Fred Amador MD [Primary Care Provider] - Stand Alone Forms: Patient Portal/API
[2023-06-27] MEDS: LORazepam 0.5 MG TABLET 1 MG PO (00:21)
[2023-06-27 01:11] VITALS: PULSE 72; O2SAT 99
[2023-06-27 01:12] VITALS: BP 110/64; PULSE 75; RESP 16; TEMP 36.4; O2SAT 98
== END 2023-06-27 01:22 | disposition home or self-care (01) ==
PROVIDERS: Emergency Provider Emergency Medicine; PCP Internal Medicine
DX: F41.9 Anxiety disorder, unspecified (principal)
CPT/HCPCS: 99283